=== PATIENT | male | born 1955 | race Caucasian/White ===

== ENCOUNTER 2023-10-26 11:20 | Outpatient (AMB) | payer MEDICARE, SELFPAY ==
--- NOTE | 2023-10-26 12:38 | AM.OFFWIN_ITS ---
Intake Vital Signs 10/26/23 12:39 Height 5 ft 10 in Weight 199 lb BMI 28.6 BP 112/60 Blood Pressure Location Lt brachial Position Sitting Pulse 74 Pulse Source Pulse Oximeter Temp 97.7 F Temp Source Oral Pulse Oximetry (%) 97 Intake Visit Reasons: EP, urgency with urination Intake Note: Pt is here today c/o urgency upon urination x2wks Allergies No Known Allergies [No Known Allergies*] Allergy (Unverified 10/26/23 12:51) HPI EP, urgency with urination HPI Details Patient is 67-year-old male comes the walk-in clinic complaining of urinary frequency the for the last few weeks, with incontinence of urine at times. He denies dysuria, gross hematuria, abdominal pain, pelvic or bladder pain, but does some mild left back pain. No nausea vomiting or diarrhea, weakness or dizziness, chills, fever, myalgias or malaise, chest pain or shortness of breath, headache anorexia, or other systemic symptoms of infection. He denies pyelonephritis history, or kidney stone history. He states that he has had a urinary tract the past and it presented like this. He did not have difficulty clearing that infection. Review of Systems Const All systems reviewed & are unremarkable except as noted in HPI and below Physical Exam Vital Signs: Last Vital Signs Temp 97.7 F 10/26/23 12:39 Pulse 74 10/26/23 12:39 BP 112/60 10/26/23 12:39 Pulse Ox 97 10/26/23 12:39 BMI result Body Mass Index 28.6 Const General: cooperative, healthy appearing, comfortable, no acute distress, alert, awake, Physically active and well groomed; No anxious, diaphoretic, ill appear ing, intoxicated appearing, poor hygiene or tired appearing Nutritional Appearance: average body habitus Orientation/consciousness: patient oriented x3 Limitations: no limitations Resp Effort & Inspection: normal respiratory effort, able to speak in complete sentences, no audible wheezes, no cough, no grunting, not labored, no nasal flaring, no retractions and symmetric chest movement Auscultation: clear to auscultation bilaterally, no crackles, no rales, no rhonchi, no wheezes, lung sounds not diminished and No rub present Cardio Rate: regular rate GI Palpation (GI): Soft to palpation, not firm, nontender, no guarding and not rigid General: Yes CVA tenderness (Possible left side) Back/Spine/Pelvis Back: CVA tenderness (Possible left side) Skin Other: Good color, warm and dry Neuro General: patient oriented x3 Psych Appearance: grossly normal Mental Status: mental status grossly normal Speech and movement: Normal speech and movement present Affect: normal affect Attitude: cooperative Thought process: Normal thought process present Insight: Good insight present (Psych) Judgement: Good judgement present (Psych) Results AMB Urinalysis, Automated UA Leukoctes 15 Kj/uL Last Edit by Miryam Matta CMA on 10/26/23 12:47 UA Nitrite Negative Last Edit by Miryam Matta CMA on 10/26/23 12:47 UA Urobilinogen 0.2 mg/dL Last Edit by Miryam Matta CMA on 10/26/23 12:47 UA Protein 15 mg/dL Last Edit by Miryam Matta CMA on 10/26/23 12:47 UA pH 6.0 Last Edit by Miryam Matta CMA on 10/26/23 12:47 UA Blood 0 Matthew/uL Last Edit by Miryam Matta CMA on 10/26/23 12:47 UA Specific [place] 1.030 Last Edit by Miryam Matta CMA on 10/26/23 12:47 UA Ketone Negative Last Edit by Miryam Matta CMA on 10/26/23 12:47 UA Bilirubin 0 mg/dL Last Edit by Miryam Matta CMA on 10/26/23 12:47 UA Glucose 0 mg/dL Last Edit by Miryam Matta CMA on 10/26/23 12:47 Results Reviewed Results Reviewed: Laboratory Last Values Urine pH (Auto) 6.0 10/26/23 12:43 Specific [place] (Auto) 1.030 10/26/23 12:43 Urine Protein (Auto) 15 mg/dL 10/26/23 12:43 Glucose (UA)(Auto) 0 mg/dL 10/26/23 12:43 Urine Ketones (Auto) Negative 10/26/23 12:43 Urine Blood (Auto) 0 Matthew/uL 10/26/23 12:43 Urine Nitrite (Auto) Negative 10/26/23 12:43 Urine Bilirubin (Auto) 0 mg/dL 10/26/23 12:43 Urine Urobilinogen (Auto) 0.2 mg/dL 10/26/23 12:43 Leukocyte Esterase (Auto) 15 Kj/uL 10/26/23 12:43 Assessment & Plan Assessment & Plan (1) UTI (urinary tract infection): Code(s): N39.0 - Urinary tract infection, site not specified Qualifiers: Urinary tract infection type: acute cystitis Hematuria presence: without hematuria Qualified Code(s): N30.00 - Acute cystitis without hematuria Plan: Patient is a 67-year-old male with apparent UTI, acute uncomplicated cystitis although he does have some intermittent incontinence. His vital signs are stable, and he has no worrisome symptoms other than mild left back pain. He is a male, but no other high risk factors. I will start him on Macrobid, as he has limited with antibiotics due to his other meds. He did not have difficulty clearing his last UTI in the past, but I will send his urine out for microscopy and susceptibility testing. He knows to follow up if symptoms persist or worsen, or go to the emergency department with worrisome symptoms. Orders: Orders AMB Urinalysis Automated 10/26/23 Z13.9 - Encounter for screening, unspecified UA CC w/rflx Micro + Cult 10/26/23 R30.0 - Dysuria Medications: New nitrofurantoin monohyd/m-cryst 100 mg (Macrobid) must administer with a meal/food 100 mg PO Q12H 7 days 14 caps 0RF N39.0 - Urinary tract infection, site not specified Coding Level of Care Code Est Pt Level 4 (53798) Diagnoses Acute cystitis without hematuria N30.00 Urinary tract infection type: acute cystitis Hematuria presence: without hematuria
[2023-10-26 12:39] VITALS: BP 112/60; PULSE 74; TEMP 36.5; O2SAT 97; BMI 28.6
== END 2023-10-26 13:26 | disposition home or self-care (01) ==
PROVIDERS: PCP Internal Medicine; Visit Provider Physician Assistant Medical
DX: R35.0 Frequency of micturition (principal)
CPT/HCPCS: 81003; 99214

== ENCOUNTER 2023-10-26 15:27 | Outpatient (REF) | payer MEDICARE, SELFPAY ==
[2023-10-26 15:34] LABS: Appearance Urine Cloudy; Color Urine DK YELLOW; Glucose Urine UA Negative (Negative); Leukocyte Esterase Urine Trace (Negative); Nitrite Urine Negative (Negative); Specific Gravity - Urine 1.025 (1.005-1.025); UMIC TRIGGER UACC YES; Urine Blood Negative (Negative); Urine Ketones Negative (Negative); Urine Protein Trace mg/dL (Neg-Trace)
[2023-10-26 15:39] LABS: Bacteria Urine None Seen (None Seen); Hyaline Casts Urine 0-2 /LPF (0-2); RBC Urine 0-2 /HPF (0-2); Squamous Epithelial Cell Urine 0-2 /HPF (0-2); UACC Culture Trigger YES
== END 2023-10-26 15:28 | disposition home or self-care (01) ==
LOC: HO.HMGCLNP 15:27
PROVIDERS: Visit Provider Physician Assistant Medical
DX: R30.0 Dysuria (principal)
CPT/HCPCS: 81001; 87086; 87088; 87186

== ENCOUNTER 2025-11-23 09:18 | Outpatient (AMB) | payer MEDICARE, SELFPAY ==
--- OUTSIDE RECORDS SUMMARY | 2024-09-29 08:45 | XMS_ITS ---
Author Organization [facility] Address [address] [facility] [place] [address] Care Team Providers Care Dairy Husbandman Name Role Phone Mariah Galaviz Primary Care Provider Marly Neal [phone] REASON FOR VISIT sooner appt Encounters Encounter Location Date Provider Diagnosis [address] [address] 09/29/2024 Marly Grier Plan Of Treatment Next Appt Details Provider Name:Marly Grier , 02/11/2026 01:15:00 PM, [address] [place], [address], Progress Notes * Kurt FRAUSTO ODOB: [birth year] (70 yo M)Acc No.[id number]:09/29/2024 Progress Note Patient: Demetrio BALLerin Tejada Provider: Tea Grier DPM :1955 A ge:68 Y S ex:Male Date:09/29/2024 Address:[address], [place] Pcp:Mariah Galaviz Subjective: * Chief Complaints: * 1 . Sooner appt. * Medical History: Objective: * Vitals: Assessment: Plan: * Treatment: * Images: * The named appointment provid er may or may not be the originator of this progress note, and it is not deemed complete until electronically signed by the appointment provider. Sign off status: Pending * Provider: Tea Grier DPM Date: 11/29/2023 Generated for Amie mendoza/Lori/Flex on: 11:47 AM EST
--- OUTSIDE RECORDS SUMMARY | 2024-10-15 06:30 | XMS_ITS ---
Author Organization [facility] Address [address] [place] [address] Care Team Providers Care Programming Manager Name Role Phone Mariah Galaviz Primary Care Provider Marly Neal [phone] REASON FOR VISIT Seen Sooner Encounters Encounter Location Date Provider Diagnosis [facility] [address] [place] [address] 10/15/2024 Marly Grier Plan Of Treatment Next Appt Details Provider Name:Marly Jenifer Grier , 02/11/2026 01:15:00 PM, [address] [place], [address], Progress Notes * Kurt FRAUSTO ODOB: [birth year] (70 yo M)Acc No.[id number]:10/15/2024 Progress Note Patient: Demetrio BALLerin Tejada Provider: Tea Grier DPM :1955 A ge:68 Y S ex:Male Date:10/15/2024 Address: [address] Pcp:Mariah Galaviz Subjective: * Chief Complaints: * 1 . Seen Sooner. * Medical History: Objective: * Vitals: Assessment: Plan: * Treatment: * Images: * The named appointment provid er may or may not be the originator of this progress note, and it is not deemed complete until electronically signed by the appointment provider. Sign off status: Pending * Provider: Tea Grier DPM Date: 12/15/2023 Generated for Amie mendoza/Lori/Flex on: 11:47 AM EST
--- OUTSIDE RECORDS SUMMARY | 2025-06-14 06:00 | XMS_ITS ---
Author Organization [facility] Address [address] [place] [address] Care Team Providers Care Team Otr Truck Driver Name Role Phone Mariah Galaviz Primary Care Provider Unavailabl e Black, Marly Unavailable [phone] Medications Medication SIG (Take, Route, Frequency, Duration) Notes Start Date End Date Status Metoprolol Succinate ER 50 MG 1 tablet Orally twice a day; Duration: 30 day(s) Not-Himanshu ing Neurontin 300 MG 1 capsule Orally Thr ee times a day 06/10/2013 Not-Taking Flecainide Acetate 100 MG 1 tablet Orally every 12 hrs; Duration: 30 day(s) Not-Himanshu ing Zolpidem Tartrate 10 MG 1 tablet at bedt brooke as needed Orally Once a day Not-Himanshu ing Lisinopril 20 MG 1 tablet Orally Once a day; Duration: 30 day(s) Not-Himanshu ing Zoloft 1 tablet Orally Once a day; Duration: 30 day(s) Not-Himanshu ing Pravachol 1 tablet Orally Once a day; Duration: 30 days Not-Takin g Extra-Depth Diabetic Shoes with 3 Pair Custom heat-molded multi-density innersoles . for 1 year . 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 07/08/2014 Not-Taking Gabapentin 300 MG TAKE ONE CAPSULE BY MOUTH 3 TIMES A DAY Orally Three times a day; Duration: 90 days Not-Takin g Metoprolol Tartrate 100 MG 1 tablet with food Orally Twice a day Not-Taking Extra Depth Orthopedic Shoes (1 Pair) with Customized Heat Molded Multidensity Innersoles (3 Pair) as directed Dx: NIDDM/Polyneuropathy (E11.42), Hammertoe Foot Deformity (M20.41,M20.42), Preulcerative Skin Lesion(s) (L85.1 02/18/2025 Active Ciclopirox 8 % 1 application Backpackers Manager ally Once a day; Duration: 30 08/06/2023 Active Ciclopirox 8 % 1 application Backpackers Manager ally Once a day; Duration: 30 days 08/05/2023 Active Omeprazole 20 MG 1 capsule Orally Onc e a day; Duration: 30 day(s) Active Warfarin Sodium 5 MG 1 tablet Orally Onc e a day Active Atorvastatin Calcium 10 MG 1 tablet Orally Once a day Active Magnesium Oxide 250 MG 1 tablet as neede d Orally Once a day Active metFORMIN HCl ER 500 MG 1 tablet with ev ening meal Orally Once a day Active Amitriptyline HCl 50 MG 1 tablet at bedt brooke Orally Once a day Active Fenofibrate 145 MG 1 tablet Orally Once a day Active ARIPiprazole 5 MG 1 tablet Orally Once a day Active Encounters Encounter Location Date Provider Diagnosis [facility] [address] [place] [address] 06/14/2025 Marly Grier Plan Of Treatment Next Appt Details Provider Name:Marly A Marvel , 02/11/2026 01:15:00 PM, [address] [place] [address], [place], [address], Progress Notes * Kurt FRAUSTO ODOB: [birth year] (70 yo M)Acc No.[id number]:06/14/2025 Progress Note Patient: Kurt BALL Provider: Tea Grier DPM :1955 A ge:69 Y S ex:Male Date:06/14/2025 Address:[address] [place], [place] [id number] Pcp:Mariah Galaviz Subjective: * Chief Complaints: * * Medical History: D epression, High blood pressure, Anxiety, Arthritis, Back,Hip,and Knee pain, Heart disease, Measles, Mumps, Chicken pox, Numbness, Chronic sinusitis, Vascular phlebitis (clots). * Medications: T aking ARIPiprazole 5 MG Tablet 1 tablet Orally Once a day , Taking Fenofibrate 145 MG Tablet 1 tablet Orally Once a day , Taking Amitriptyline HCl 50 MG Tablet 1 tablet at bedtime Orally Once a day , Taking metFORMIN HCl ER 500 MG Tablet Extended Release 24 Hour 1 tablet with evening meal Orally Once a day , Taking Magnesium Oxide 250 MG Tablet 1 tablet as needed Orally Once a day , Taking Atorvastatin Calcium 10 MG Tablet 1 tablet Orally Once a day , Taking Warfarin Sodium 5 MG Tablet 1 tablet Orally Once a day , Taking Omeprazole 20 MG Capsule Delayed Release 1 capsule Orally Once a day , Taking Ciclopirox 8 % Solution 1 application Externally Once a day , Taking Ciclopirox 8 % Solution 1 application Externally Once a day , Taking Extra Depth Orthopedic Shoes (1 Pair) with Customized Heat Molded Multidensity Innersoles (3 Pair) as directed Dx: NIDDM/Polyneuropathy (E11.42), Hammertoe Foot Deformity (M20.41,M20.42), Preulcerative Skin Lesion(s) (L85.1 , Not-Taking/PRN Metoprolol Tartrate 100 MG Tablet 1 tablet with food Orally Twice a day , Not-Taking/PRN Gabapentin 300 MG Capsule TAKE ONE CAPSULE BY MOUTH 3 TIMES A DAY Orally Three times a day , Not-Taking/PRN Extra-Depth Diabetic Shoes with 3 Pair Custom heat-molded multi-density innersoles . . for 1 year . 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 , Not-Taking/PRN Pravachol Tablet 1 tablet Orally Once a day , Not-Taking/PRN Zoloft Tablet 1 tablet Orally Once a day , Not-Taking/PRN Metoprolol Succinate ER 50 MG Tablet Extended Release 24 Hour 1 tablet Orally twice a day , Not-Taking/PRN Lisinopril 20 MG Tablet 1 tablet Orally Once a day , Not-Taking/PRN Zolpidem Tartrate 10 MG Tablet 1 tablet at bedtime as needed Orally Once a day , Not-Taking/PRN Flecainide Acetate 100 MG Tablet 1 tablet Orally every 12 hrs , Not-Taking/PRN Neurontin 300 MG Capsule 1 capsule Orally Three times a day Objective: * Vitals: Assessment: Plan: * Treatment: * Images: * The named appointment provid er may or may not be the originator of this progress note, and it is not deemed complete until electronically signed by the appointment provider. Sign off status: Pending * Provider: Tea Grier DPM Date: 0 06/14/2025 Generated for Amie mendoza/Alex on: 1 11:47 AM EST
--- NOTE | 2025-11-23 09:28 | MHC.OFFVIS ---
Intake Visit Reasons: dementia Allergies No Known Allergies (No Known Allergies*) Allergy (Unverified 11/23/25 09:34) Medication List - Last Reconciled 11/23/25 by Marilou Salazar CNP amitriptyline 50 mg PO BEDTIME aripiprazole 2 mg PO DAILY atorvastatin 10 mg PO DAILY blood sugar diagnostic (FreeStyle Lite Strips) As directed cholecalciferol (vitamin D3) 50 mcg PO DAILY ciclopirox 8% 1 appl topical DAILY clonazepam 0.5 mg PO DAILY fenofibrate nanocrystallized 145 mg PO DAILY flecainide 100 mg PO BID fluticasone propionate 50 mcg/actuation sprays intranasal lancets (FreeStyle Lancets) As directed lisinopril 10 mg PO BID magnesium oxide 250 mg PO DAILY metformin ER 500 mg PO DAILY metoprolol tartrate 25 mg PO BID nitrofurantoin monohyd/m-cryst 100 mg (Macrobid) 100 mg PO Q12H 7 days omeprazole 20 mg PO DAILY sertraline 200 mg PO DAILY warfarin 5 mg PO DAILY HPI Comments Details: 70-year-old man with DM, HTN, atrial fibb, MASSIMO on CPAP, depression, and dementia. He returns after about 21 months. He does not have a complete medication list with him. He stopped taking donepezil probably sometime over a year ago as he ran out of medication. He feels his memory has been okay, but he wanted to restart medication. He lived with his and he said that she did not have any concerns regarding his memory. He enjoyed playing games on the computer and biking. He also recently joined a gym. Sleep was okay, using CPAP. Mood was okay. [facility] Medical History (Updated 11/23/25 @ 09:34 by Marilou Salazar CNP) Diabetes MASSIMO (obstructive sleep apnea) Barretts esophagus Hypertension Afib DVT (deep venous thrombosis) Depression Surgical History (Updated 11/23/25 @ 09:34 by Marilou Salazar CNP) Hx of decompressive lumbar laminectomy Review of Systems Const Denies chills, Denies daytime sleepiness, Denies difficulty sleeping, Denies fatigue, Denies fever(s), Denies frequent falls, Denies headache(s), Denies increased appetite, Denies poor appetite, Denies snoring, Denies weakness, Denies weight gain and Denies weight loss Eyes Denies loss of vision ENT Denies vertigo, Denies dizziness and Denies headache(s) Card Denies chest pain at rest, Denies chest pain with activity, Denies syncope, Denies leg edema and Denies palpitations Resp Denies snoring GI Denies constipation, Denies heartburn, Denies diarrhea and Denies nausea Denies urinary frequency, Denies urinary incontinence and Denies urinary urgency Musc Denies abnormal gait, Denies numbness and Denies tingling Skin/Breast Denies dry skin and Denies rash Neuro Denies abnormal gait, Denies vertigo, Denies dizziness, Denies syncope, Denies frequent falls, Denies headache(s), Denies lack of coordination, Denies loss of vision, Reports memory loss, Denies numbness, Denies restless legs, Denies seizure-like activity, Denies tingling, Denies paresthesias, Denies tremor(s) and Denies weakness Psych Denies anxiety, Denies depression, Denies auditory hallucinations, Reports memory loss, Denies visual hallucinations and Denies suicidal ideation Endo Denies fatigue and Denies palpitations Physical Exam Const Other: General Appearance:? normal, in no acute distress. Skin:? no rashes, no significant birthmarks. Heart:? S1, S2 normal, no murmurs. Lungs:? clear anteriorly and posteriorly. Extremities:? no edema. Psych:? alert, cooperative with exam. Neuro Other: Mental Status:?Normal attention and affect.?He was able to tell me today's date, 3/3 recall. Cranial Nerves:?Pupils are equal, round and reactive to light. External occular muscles are intact. Visual hayward are full. Face is symmetrical. Facial sensations are normal. Tongue is midline. Palate elevates symmetrically. Shoulder shrugging is normal. Hearing to bedside conversation is decreased. Sensory Exam:?....? Coordination:?No ataxia,?no titubation.? Gait Exam: Within normal limits. Cerebellar Signs:?Diaipx-du-kuok is okay. Extrapyramidal System:?No tremor, rigidity with normal facial expressions.? Pronator Drift:?Not present.? Involuntary Movements:?No tremors seen.? Speech:?Normal.? Results Reviewed Results Reviewed: CT brain WO at [facility] in 2019: mild diff atrophy MRI brain WO at [facility] in 2019: mild diff atrophy MRA brain at [facility] in 2019: [place]. Assessment & Plan Assessment & Plan (1) Alzheimers disease: Code(s): G30.9 - Alzheimer's disease, unspecified; F02.80 - Dementia in other diseases classified elsewhere, unspecified severity, without behavioral disturbance, psychotic disturbance, mood disturbance, and anxiety Category: Medical Plan: Start donepezil 5mg 1 tablet at bedtime, use/side effects reviewed. Stay physically and socially active. He was asked to bring complete list of medications to next appointment. Follow up in 3 months or sooner as needed. Medications: New donepezil 5 mg PO BEDTIME 90 tabs 0RF 90 days Coding Level of Care Code Est Pt Level 4 (78663) Diagnoses Alzheimers disease G30.9; F02.80
--- OUTSIDE RECORDS SUMMARY | 2025-11-23 11:46 | XMS_ITS | Encounter Summary ---
Author Organization [facility] Address [address] [place] [address] Care Team Providers Care Marketing Liaison Name Role Phone Mariah Galaviz MD Primary Care Provider [phone] Reason for Visit * Reason Onset Date Comments Cough 11/16/2024 Cold Exposure 11/16/2024 Encounter Details Date Type Department Care Team (Late st Contact Info) Description 11/16/2024 Nurse Triage Adult Medicine [address] [phone] Mariah Galaviz MD [address] [place] [address] Social History Tobacco Use Types Packs/Day Years Used Date Smoking Tobacco: Former Cigarettes 0 Q uit: 01/23/2022 Passive Smoke Exposure: Never Smokeless Tobacco: Never Alcohol Use Standard Drinks/Week Comments Never 0 (1 standard drink = 0.6 oz pur e alcohol) Sex and Gender Information Value Date Recorded Sex Assigned at Male 08/16/2025 8:13 AM EDT Legal Sex Male 10:41 AM EST Gender Identity Male 08/16/2025 8:13 AM EDT Sexual Orientation Not on file documented as of this encounter Progress Notes * Fatmata Swain RN - 11/16/2024 4:51 PM EST Reason for Disposition ??? Cough Answer Assessment - Initial Assessment Questions 1. ONSET: When did the cough begin? Started approx 2 weeks ago 2. SEVERITY: How bad is the cough today? At times intense nasty souding 3. SPUTUM: Describe the color of your sputum (e.g., none, dry cough; clear, white, yellow, green) Very productive with thick sputum yellowish 4. HEMOPTYSIS: Are you coughing up any blood? If Yes, ask: How much? (e.g., flecks, streaks, tablespoons, etc.) no 5. DIFFICULTY BREATHING: Are you having difficulty breathing? If Yes, ask: How bad is it? (e.g., mild, moderate, severe) - MILD: No SOB at rest, mild SOB with walking, speaks normally in sentences, can lie down, no retractions, pulse < 100. - MODERATE: SOB at rest, SOB with minimal exertion and prefers to sit, cannot lie down flat, speaksin phrases, mild retractions, audible wheezing, pulse 100-120. - SEVERE: Very SOB at rest, speaks in single words, struggling to breathe, sitting hunched forward,retractions, pulse > 120. mild 6. FEVER: Do you have a fever? If Yes, ask: What is your temperature, how was it measured, and when did it start? No fever or chills 7. CARDIAC HISTORY: Do you have any history of heart disease? (e.g., heart attack, congestive heart failure) A-fib 8. LUNG HISTORY: Do you have any history of lung disease? (e.g., pulmonary embolus, asthma, emphysema) Nodule in one lung 9. PE RISK FACTORS: Do you have a history of blood clots? (or: recent major surgery, recent prolonged travel, bedridden) Dvt left knee 10. OTHER SYMPTOMS: Do you have any other symptoms? (e.g., runny nose, wheezing, chest pain) No chest pain, no wheezing 11. : Is there any chance you are ? When was your last menstrual period? N/A 12. TRAVEL: Have you traveled out of the country in the last month? (e.g., travel history, exposures) Did not test for covid Protocols used: Cough - Acute [id number] * Jung Mckeon - 11/16/2024 2:31 PM EST Patient call requires triage: Symptoms patient is presenting: pt went to [facility] 11/08/24, pt got an x-ray and it didn't show that pt had an infection. Pt is still coughing and yellow phlegm. Pt took OTC mucinex. How long has patient had these symptoms?: 11/08/24 For ALL patients calling to schedule any appointment (routine, sick visit, follow up, consult, etc.) in the outpatient setting please ask the following questions: Do you have fever of higher than 101, sore throat with difficulty swallowing or severe shortness ofbreath? Yes, sore throat and SOB If YES to any of these above symptoms, send a message to triage and do not book. Red dot. If no, an audio or video visit should be booked. Have you had close contact with someone with Coronavirus in the last 14 days? no Have you traveled abroad? no Have you traveled recently to another state outside of [place], [place], [place], [place], [place], [place], [place]? no o If yes, did you quarantine for 14 days or have a negative covid test? no If yes to any of the above, patient is not to be scheduled in office until after 14 day quarantine or negative covid test. If pain or injury related was it due to an accident at work or from a motor vehicle accident? If yes, date of accident/Injury: No If yes, gather 3rd libertarian insurance information Third Constitution Party Information: not applicable PCP: aMriah Galaviz MD Payor: [facility] / Plan: [facility] PPO / Product Type: *No Product type* / documented in this encounter Plan of Treatment Not on file documented as of this encounter Visit Diagnoses Not on filedocumented in this encounter Additional Health Concerns Infection Onset Date Last Indicated Resolved Time Respiratory Rule-Out 04/21/2025 04/21/2025 025 11:18 PM EDT COVID-19 Rule-Out 04/21/2025 04/21/2025 04/21/2025 11:18 PM EDT C. difficile Rule-Out 07/01/2025 07/01/20252024 3:40 PM EDT documented as of this encounter Care Teams Marketing Liaison Relationship Specialty Start Date End Date Mariah Galaviz MD [address] [place] [address] PCP - General Internal Medicine 09/18/24 documented as of this encounter
--- OUTSIDE RECORDS SUMMARY | 2025-11-23 11:47 | XMS_ITS | Patient Health Record ---
[facility] Address [address] [place] [address] Care Team Providers Care Brush Or Broom Cutter Name Role Phone Mariah Galaviz Primary Care Provider Unavailvu e Black, Marly Unavailable [phone] Allergies No Known Allergies Results Component Value Reference Range Notes HEMOGLOBIN A1C (GLYCOHEMOGLO BIN) Reviewed date:03/04/2025 02:08:55 PM Interpretation: Performing Lab: Notes/Report: HEMOGLOBIN A1C % (HH) 7.8 Reason For Referral No Information Medications Medication SIG (Take, Route, Frequency, Duration) Notes Start Date End Date Status Atorvastatin Calcium 10 MG 1 tablet Orally Once a day Active Metoprolol Succinate ER 50 MG 1 tablet Orally twice a day; Duration: 30 day(s) Not-Himanshu ing Magnesium Oxide 250 MG 1 tablet as neede d Orally Once a day Active Zoloft 1 tablet Orally Once a day; Duration: 30 day(s) Not-Himanshu ing metFORMIN HCl ER 500 MG 1 tablet with ev ening meal Orally Once a day Active Pravachol 1 tablet Orally Once a day; Duration: 30 days Not-Takin g Amitriptyline HCl 50 MG 1 tablet at bedt brooke Orally Once a day Active Extra-Depth Diabetic Shoes with 3 Pair Custom heat-molded multi-density innersoles . for 1 year . 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 07/08/2014 Not-Taking Fenofibrate 145 MG 1 tablet Orally Once a day Active Gabapentin 300 MG TAKE ONE CAPSULE BY MOUTH 3 TIMES A DAY Orally Three times a day; Duration: 90 days Not-Takin g ARIPiprazole 5 MG 1 tablet Orally Once a day Active Metoprolol Tartrate 100 MG 1 tablet with food Orally Twice a day Not-Taking Extra Depth Orthopedic Shoes (1 Pair) with Customized Heat Molded Multidensity Innersoles (3 Pair) as directed Dx: NIDDM/Polyneuropathy (E11.42), Hammertoe Foot Deformity (M20.41,M20.42), Preulcerative Skin Lesion(s) (L85.1 02/18/2025 Active Neurontin 300 MG 1 capsule Orally Thr ee times a day 06/10/2013 Not-Taking Ciclopirox 8 % 1 application Mail Truck Driver ally Once a day; Duration: 30 08/06/2023 Active Ciclopirox 8 % 1 application Mail Truck Driver ally Once a day; Duration: 30 days 08/05/2023 Active Flecainide Acetate 100 MG 1 tablet Orally every 12 hrs; Duration: 30 day(s) Not-Himanshu ing Omeprazole 20 MG 1 capsule Orally Onc e a day; Duration: 30 day(s) Active Zolpidem Tartrate 10 MG 1 tablet at bedt brooke as needed Orally Once a day Not-Himanshu ing Warfarin Sodium 5 MG 1 tablet Orally Onc e a day Active Lisinopril 20 MG 1 tablet Orally Once a day; Duration: 30 day(s) Not-Himanshu ing Immunizations Vaccine Route Administration Date Status Comme nts Influenza Unknown 08/05/2023 Administered Social History Tobacco Use: Social History Observation Description Date Details (start date - stop date) Never Smoker NA - NA Alcohol Screen Question Answer Notes Did you have a drink contain ing alcohol in the past year? Yes How often did you have a dri nk containing alcohol in the past year? 4 or more times a week (4 points) Points 4 Interpretation Positive Tobacco use other than smoking: Question Answer Notes Are you an other tobacco user? No Tobacco Control (Standard) Question Answer Notes Tobacco use: Nonsmoker Problems Problem Type SNOMED Code ICD Code Onset Dates Problem Status W/U Status Risk Notes Problem Acquired hammer toe of right foot (649548002726725 5) Other hammer toe(s) (acquired), right foot (M20.41) Active confirmed Problem Acquired hammer toe of left foot (674052596673187 3) Other hammer toe(s) (acquired), left foot (M20.42) Active confirmed Problem Polyneuropathy due to type 2 diabetes mellitus (170492688) Type 2 diabetes mellitus with diabetic polyneuropathy (E11.42) Active confirmed Problem Acquired hallux valgus (08420427) 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) Active confirmed Problem Ulcer of toe of right foot (disorder) (880810726748807 01) Skin ulcer of toe of right foot, limited to breakdown of skin (L97.511) Active confirmed Improvement Problem Skin ulcer of to e of right foot with fat layer exposed (L97.512) Active confirmed Problem Neuropathic ulcer of right foot (disorder) (337074800324780 02) Neuropathic ulcer of right foot, limited to breakdown of skin (L97.511) Active confirmed Response to treatment Vital Signs Blood pressure diastolic 80 mm Hg 03/04/2025 Height 0jn33wk in 03/04/2025 Blood pressure systolic 120 mm Hg 03/04/2025 Weight 193 lbs 03/04/2025 BMI 27.69 kg/m2 03/04/2025 Procedures Procedure Date Ordered Date Performed Result Body Sit e 71243-MMJSWNP SKIN/TISSUE 02/18/2025 N/A 24932-GIQBIVL NAIL, 1-5 03/04/2025 N/A 47128- Debride <25 sq cm 03/04/2025 N/A 45757-RWMY SKIN LESIONS, 2 TO 4 03/04/2025 N/A 96315-HQVC NAIL(S) 03/04/2025 N/A Encounters Encounter [facility] Date [facility] [address] [facility]18[facility]25 Marly Black Other hammer toe(s) (acquired), right foot M20.41 ; Other hammer toe(s) (acquired), left foot M20.42 ; Acquired hallux interphalangeus of right foot M20.11 ; Type 2 diabetes mellitus with diabetic polyneuropathy E11.42 and Skin ulcer of toe of right foot with fat layer exposed L97.[address] [facility] [address] 03/04/2025 Marly Black Type 2 diabetes mellitus with diabetic polyneuropathy E11.42 ; Onychomycosis B35.1 and Skin ulcer of toe of right foot, limited to breakdown of skin L97.511 [facility] [address] [address] 02/16/2025 Marly Grier [facility] [address] [address] 03/04/2025 Marly Grier [facility] [address] 06/14/2025 Marly Grier Assessments Encounter Date Diagnosis (ICD Code) Assessment Notes Treatment Notes Treatment Clinical Notes Section Notes 02/18/2025 Other hammer toe(s) (acquired), right foot (ICD-10 - M20.41) Patient Educated with: DIABETIC FOOT CARE INSTRUCTIONS. pdf (DIABETIC FOOT CARE INSTRUCTIONS. pdf) 02/18/2025 Other hammer toe(s) (acquired), left foot (ICD-10 - M20.42) 03/04/2025 Type 2 diabetes mellitus with diabetic polyneuropathy (ICD-10 - E11.42) 03/04/2025 Onychomycosis (ICD-10 - B35.1) 03/04/2025 Skin ulcer of toe of right foot, limited to breakdown of skin (ICD-10 - L97.511) Improvement 02/18/2025 Acquired hallux interphalangeus of right foot (ICD-10 - M20.11) 02/18/2025 Type 2 diabetes mellitus with diabetic polyneuropathy (ICD-10 - E11.42) 02/18/2025 Skin ulcer of toe of right foot with fat layer exposed (ICD-10 - L97.512) 03/04/2025 Other Plan Of Treatment Pending Test Test Name Order Date X ray : Foot, left 3V 05/11/2013 X ray : Foot, right 3V 07/08/2014 X ray : Foot, right 3V 05/11/2013 65960-QMLKFET NAIL, 6 OR MORE 06/10/2013 32071-PFYFBAK NAIL, 6 OR MORE 05/11/2013 69563-HHIFGZU NAIL, OR MORE 07/13/2013 79664-ELUUFOE NAIL, 1-5 08/05/2023 02458-EDNZWQZ NAIL, 1-5 10/21/2023 25071-HCOXPJV NAIL, 1-5 04/09/2024 57242-GQKROGT NAIL, 1-5 09/24/2024 70407-MXQJOSZ NAIL, 1-5 03/04/2025 52148- Debride <25 sq cm 03/04/2025 71288- Debride <25 sq cm 09/24/2024 68072- Debride <25 sq cm 04/09/2024 16336- Debride <25 sq cm 10/21/2023 83211- Debride <25 sq cm 08/05/2023 87585- Debride <25 sq cm 07/13/2013 35003- Debride <25 sq cm 10/12/2013 87284- Debride <25 sq cm 05/11/2013 78675- Debride <25 sq cm 06/10/2013 67366-XMKVASJ SKIN/TISSUE 07/08/2014 62574-QFLSDYS SKIN/TISSUE 02/18/2025 56653-WDRR SKIN LESIONS, 2 TO 4 03/04/20 25 83116-UALK SKIN LESIONS, 2 TO 4 07/08/20 14 54654-PPTA SKIN LESIONS, 2 TO 4 08/05/20 23 19588-YUSH SKIN LESIONS, 2 TO 4 10/21/20 23 58524-FMYS SKIN LESIONS, 2 TO 4 04/09/20 24 47855-IHEO SKIN LESIONS, 2 TO 4 09/24/20 24 20346-IRPH NAIL(S) 03/04/2025 08309-UOIG NAIL(S) 09/24/2024 Next Appt Details Provider Name:Marly Grier , 02/11/2026 01:15:00 PM, [address] [place], [address], Insurance Providers Payer Name Payer Address Payer Phone Subscriber Number Group Number Insured Name Patient Relationship to Insured Coverage Start Date Coverage End Date [facility] 65 Medicare Preferred [address] [place] [address] [id number] Kurt Frausto Self - patient is the insured Medical (General) History Medical History History ICD Code depression high blood pressure Anxiety Arthritis Back,Hip,and Knee pain Heart disease Measles Mumps Chicken pox Numbness chronic sinusitis Vascular phlebitis (clots) Surgical History Surgery Date(Month/Year) back surgery 1975 lumbar fusion 2020
--- OUTSIDE RECORDS SUMMARY | 2025-11-23 11:47 | XMS_ITS | Data Portability ---
Author Organization [place] [facility] Address [address] [address] Care Team Providers Care Casing In Line Feeder Name Role Phone LETITIA CARISSA Primary Care Provider [phone] Assessment Encounter Date Assessment Date Assessment LastModified by Organization Details LastModified Time 07/07/2024 07/07/2024 Resolution: In-office cleaning. Patient to peanut picker device(s) at their convenience. [email or web address] Not available 07/07/2024 15:02:49 10/08/2024 10/08/2024 Patient has a discount through his insurance at [facility] and would like to investigate this option before proceeding with a fitting at this office. [email or web address] Not available 10/08/2024 14:04:42 Plan of Treatment Reminders Order Date Submit Date Provider Last Modified By Organization Details Last Modified Time Details Appointments None record ed. Lab None record ed. Referral None record ed. Procedures None record ed. Surgeries None record ed. Imaging None record ed. Medication Orders None record ed. Patient TargetsNo targets recorded. Patient InstructionsNo instructions recorded. Reason for Referral None Reported. Results Created Date Observation Date Name Description Value Unit Range Abnormal Flag Note LastModifiedBy Organization Detail LastModifiedTime 07/14/2010/24/2023 imagi ng/di agnos tic resul t No observ ation record ed. [email or web address] Not Available 19:33:45 07/14/20 24 11/27/2023 audio gram No observ ation record ed. [email or web address] Not Available 19:33:52 Result Notes None recorded. Problems Name Problem SNOMED Code Status Onset Date Resolution Date Notes Provider Name and Address Organization Details Recorded Time Disorder of nasal sinus 2776343 Active 2019 Unspecifie d disorder of nose and nasal sinuses; Note: Date Diagnosed: 06/08/2020 2:10 PM (J34.9) Not Available [facility] 4 02:13:22 Disorder of the nose 51035967 Active 2019 Unspecifie d disorder of nose and nasal sinuses; Note: Date Diagnosed: 06/08/2020 2:10 PM (J34.9) Not Available [facility] 4 02:13:22 Sensorine ural hearing loss of bilateral ears 841523993 Active 2022 Sensorineu ral hearing loss, bilateral; Note: Date Diagnosed: 10/29/2023 11:32 AM (H90.3) Not Available [facility] 4 02:13:36 Problem Notes None recorded. Medical Equipment None Reported. Medications Name Sig Start Date Stop Date Status Note LastModified by Organization Details LastModified Time clonidine HCl 0.1 mg tablet TAKE 1 TABLET BY MOUTH NIGHTLY active Not Available Not Available No t Available doxycyclin e hyclate 100 mg capsule TAKE 1 CAPSULE BY MOUTH TWICE A DAY WITH FOOD & BIG GLASS OF WATER FOR 5 DAYS active Not Available Not Available No t Available atorvastat in 10 mg tablet TAKE 1 TABLET BY MOUTH EVERYDAY AT BEDTIME active Not Available Not Available No t Available metoprolol tartrate 100 mg tablet 2018 active Medicatio n ID: [id number] Du ration Value: 90 Brand Name: metoprolo l tartrate Send Method: E-Prescri bed Subs Allowed: subs OK Specia l Instructi on: TAKE 1 TABLET BY MOUTH TWICE A DAY Medic ationGene ricName: metoprolo l tartrate Not Available Not Available Not Available donepezil 10 mg tablet TAKE 1 TABLET BY MOUTH EVERY DAY AT BEDTIME FOR 90 DAYS active Not Available Not Available No t Available FreeStyle Lancets 28 gauge TO TEST SUGARS ONCE A DAY PRIOR TO BREAKFAST active Not Available Not Available No t Available clonazepam 0.5 mg tablet TAKE 1 TABLET EVERY DAY BY ORAL ROUTE NEEDED. active Not Available Not Available No t Available sertraline 100 mg tablet TAKE 1 TABLET BY MOUTH EVERY DAY active Not Available Not Available No t Available amitriptyl ine 50 mg tablet TAKE 1 TABLET BY MOUTH EVERY DAY active Not Available Not Available No t Available oxycodone- acetaminop hen 5 mg-325 mg tablet TAKE 1 TABLET BY MOUTH FOUR TIMES A DAY FOR 7 DAYS active Not Available Not Available No t Available magnesium oxide 400 mg (241.3 mg magnesium) tablet TAKE 1 TABLET BY MOUTH EVERY DAY active Not Available Not Available No t Available tamsulosin 0.4 mg capsule 2018 active Medicatio n ID: [id number] Du ration Value: 90 Brand Name: tamsulosi n Send Method: E-Prescri bed Subs Allowed: subs OK Specia l Instructi on: TAKE 1 CAPSULE BY MOUTH EVERYDAY AT BEDTIME M edication GenericNa me: tamsulosi n Not Available Not Available Not Available trazodone 100 mg tablet TAKE 1 TABLET BY MOUTH NEEDED AT BEDTIME active Not Available Not Available No t Available lisinopril 10 mg tablet TAKE 1 TABLET BY MOUTH TWICE A DAY active Not Available Not Available No t Available warfarin 5 mg tablet TAKE 1/2 TAB -1 TAB DAILY DIRECTED BY [facility] active Not Available Not Available No t Available flecainide 100 mg tablet active Medicatio n ID: [id number] Br and Name: flecainid e Send Method: E-Prescri bed Subs Allowed: subs OK Medica tionGener icName: flecainid e Not Available Not Available Not Available omeprazole 20 mg capsule,de layed release TAKE 1 CAPSULE BY MOUTH EVERY DAY active Not Available Not Available No t Available mupirocin 2 % topical ointment Apply 1 a small amount to affected area twice a day 2019 active Medicatio n ID: [id number] Pr escribed By Name: Preet Stockton MD Brand Name: mupirocin Send Method: E-Prescri bed Subs Allowed: subs OK Medica tionGener icName: mupirocin Not Available Not Available Not Available albuterol sulfate HFA 90 mcg/actuat ion aerosol inhaler INHALE 2 PUFFS INTO LUNGS EVERY 6 HOURS NEEDED FOR COUGH, WHEEZING, SHORTNESS OF BREATH active Not Available Not Available No t Available fluticason e propionate 50 mcg/actuat ion nasal spray,susp ension SPRAY 2 SPRAYS BY NASAL ROUTE DAILY active Not Available Not Available No t Available metformin ER 500 mg tablet,ext ended release 24 hr TAKE 1 TABLET BY MOUTH EVERYDAY WITH FOOD active Not Available Not Available No t Available sertraline 50 mg tablet TAKE 1 TABLET DAILY IN ADDITION TO 100MG TABLET active Not Available Not Available No t Available amoxicilli n 875 mg-potassi um clavulanat e 125 mg tablet TAKE 1 TABLET BY MOUTH TWICE A DAY FOR 10 DAYS active Not Available Not Available No t Available magnesium 250 mg (as magnesium oxide) tablet active Medicatio n ID: [id number] Br and Name: magnesium oxide Sen d Method: E-Prescri bed Subs Allowed: subs OK Specia l Instructi on: TAKE 1 TABLET BY MOUTH EVERY DAY Medic ationGene ricName: magnesium oxide Not Available Not Available Not Available aripiprazo le 5 mg tablet TAKE 1 TABLET BY MOUTH EVERY DAY active Not Available Not Available No t Available bupropion HCl XL 150 mg 24 hr tablet, extended release 2018 active Medicatio n ID: [id number] Du ration Value: 90 Brand Name: bupropion HCl Send Method: E-Prescri bed Subs Allowed: subs OK Specia l Instructi on: TAKE 1 TABLET BY MOUTH EVERY DAY IN THE MORNING M edication GenericNa me: bupropion HCl Not Available Not Available Not Available nitrofuran toin monohydrat e/macrocry stals 100 mg capsule TAKE 1 CAPSULE BY MOUTH TWICE A DAY FOR 5 DAYS active Not Available Not Available No t Available fenofibrat e nanocrysta llized 145 mg tablet TAKE 1 TABLET BY MOUTH EVERY DAY active Not Available Not Available No t Available FreeStyle Lite Strips TO TEST SUGARS ONCE A DAY PRIOR TO BREAKFAST active Not Available Not Available No t Available cholecalci ferol (vitamin D3) 50 mcg (2,000 unit) capsule TAKE 1 CAPSULE BY MOUTH EVERY DAY active Not Available Not Available No t Available Eliquis 2.5 mg tablet active Medicatio n ID: [id number] Du ration Value: 30 Brand Name: Eliquis S end Method: E-Prescri bed Subs Allowed: subs OK Medica tionGener icName: Eliquis Not Available Not Available Not Available Vitals None Recorded Social History None recorded. Functional Status None recorded. Mental Status None recorded. Family History Nothing Reported. Medical History No medical history recorded. Past Encounters Encounter ID Performer Location Encounter Start Date Encounter Closed Date Diagnosis/Indication Diagnosis SNOMED-CT Code Diagnosis ICD10 Code Diagnosis IMO Codes Diagnosis Note [id number] Maggy PELAYO [facility] - [address] [place] [address] 07/07/2024 15:02:11 07/07/2024 16:37:22 Sensorineural hearing loss of bilateral ears 054536111 H90.3 [id number] Maggy [place]ELAYO [place] - [place] [address] [facility],[place] [address] [place] [address] 10/08/2024 13:26:59 10/09/2024 07:24:41 Sensorineural hearing loss of bilateral ears 835108834 H90.3 Health Concerns Section Related Observation LastModified by Organization Detai ls LastModified Time None Recorded Concern Status LastModified by Organization Details LastModified Time None Recorded Advance Directives Directive None Recorded Payers Insurance Date Sequence Insurance Name Policy Number Policy Peralta Covered Member ID Peralta Member ID Guarantor Name 10/08/2024 1 *SELF PAY* Messi Frausto 10/08/2024 1 [facility]: MEDICARE PPO BLUE (MEDICARE REPLACEMENT PPO) [id number] Kurt Frausto [id number] Kurt Frausto Notes Date Note Type Note Provider Name and Address Organization Details Recorded Time 07/07/2024 text/html Hearing Aid Repa ir HPIReported by PatientVisit TypeFor visit type, patient reportsdrop off repair.Left Hearing AidFor reported condition, patient reportshearing device is functioning well.Right Hearing AidFor reported condition, patient reportsdead (clogged tubing). Maggy PELAYO [address] [facility],[place] [address], [place], [address], [facility] 07/07/2024 15:04:19 10/08/2024 text/html Patient returned to our office for the initial fitting of hearing devices as a longstanding user of amplification. They recently lost their right hearing aid. They continue to wear their Oticon Agil Pro BTE with slim tube on the left ear. Maggy PELAYO [address] [facility] [address], [place], [address], [facility] - [facility] 10/08/2024 14:05:08
--- OUTSIDE RECORDS SUMMARY | 2025-11-23 11:47 | XMS_ITS ---
Author Name [facility] Organization Unknown History of Medication Use Medication Directions Dispensed Refills Start Date End Date Stat lisinopriL (PRINIVIL,ZESTRIL) 10 mg tablet Take 1 tablet (10 mg total) by mouth 1 (one) time each day. 04/26/2025 active metoprolol tartrate (LOPRESSOR) 25 mg tablet Take 1 tablet (25 mg total) by mouth 2 (two) times a day. 04/26/2025 active warfarin (COUMADIN) 5 mg tablet TAKE 1/2 TAB -1 TAB DAILY DIRECTED BY [facility] 04/22/2025 active metFORMIN XR (GLUCOPHAGE-XR) 500 mg 24 hr tablet Take 1 tablet (500 mg total) by mouth 1 (one) time each day. Do not crush, chew, or split. 03/11/2025 active fenofibrate (TRICOR) 145 mg tablet TAKE 1 TABLET BY MOUTH EVERY DAY 01/12/2025 active cholecalciferol (VITAMIN D-3) 50 mcg (2,000 unit) capsule TAKE 1 CAPSULE BY MOUTH EVERY DAY 12/25/2024 active omeprazole (PriLOSEC) [address] capsule Take 1 capsule (20 mg total) by mouth 1 (one) time each day. Take in a.m. on empty stomach, wait 30 minutes and then eat to activate medication 12/23/2024 active atorvastatin (LIPITOR) 10 mg tablet Take 1 tablet (10 mg total) by mouth at bedtime. 12/10/2024 active albuterol HFA (PROAIR HFA ; PROVENTIL HFA ; VENTOLIN HFA) 90 mcg/actuation inhaler Inhale 2 Puffs into the lungs every 6 hours as needed for Cough, Wheezing or Shortness of Breath for up to 30 days. 04/09/2024 active clonazePAM (KlonoPIN) 0.5 mg tablet TAKE 1 TABLET BY MOUTH EVERY DAY NEEDED 04/09/2024 active magnesium oxide (MAG-OX) 400 mg (241.3 elemental magnesium) tablet TAKE 1 TABLET BY MOUTH EVERY DAY 04/01/2024 active sertraline (ZOLOFT) 50 mg tablet TAKE 1 TABLET DAILY IN ADDITION TO 100MG TABLET 02/07/2024 active amitriptyline (ELAVIL) 50 mg tablet Take 1 Tablet by mouth daily. 01/21/2024 active traZODone (DESYREL) 100 mg tablet TAKE 1 TABLET BY MOUTH NEEDED AT BEDTIME 01/21/2024 active FREESTYLE LANCETS MISC To test sugars once a day prior to breakfast 03/26/2023 active sertraline (ZOLOFT) 100 mg tablet Take 1 Tablet by mouth daily. active Problems Problem Status Onset Date Problem Type Date of Resoluti on Source Tobacco use disorder active 2006-10-07 ProblemAct [facility] Thyroid nodule active 2011-04-05 ProblemAct [facility] Obstructive sleep apnea active 2017-12-23 ProblemAct [facility] Type II diabetes mellitus with renal manifestations (CMS/HCC V24, CMS/HCC V28) active 2011-06-13 ProblemAct [facility] Hypertension active 2008-07-21 ProblemAct [facility] Neuropathy active 2015-06-14 ProblemAct [facility] Spinal stenosis of lumbar region without neurogenic claudication active 2024-04-24 ProblemAct [facility] Acute pyelonephritis active 2025-04-22 ProblemAct [facility] Hepatomegaly active 2010-05-02 ProblemAct [facility] Alcoholic liver disease (CMS/HCC V24) active 2012-06-04 ProblemAct [facility] Alcohol dependency (CMS/HCC V24, CMS/HCC V28) active 2008-07-21 ProblemAct [facility] Paroxysmal atrial fibrillation (CMS/HCC V24, CMS/HCC V28) active 2023-03-15 ProblemAct [facility] Leg pain, bilateral active 2023-06-13 ProblemAct [facility] Lipoma of buttock active 2016-08-16 ProblemAct [facility] Vitamin D deficiency active 2019-04-07 ProblemAct [facility] SOB (shortness of breath) active 2021-01-31 ProblemAct [facility] Hyperlipidemia active 2008-02-19 ProblemAct [facility] Erectile dysfunction active 2015-06-14 ProblemAct [facility] Herpes simplex virus (HSV) infection active 2006-10-07 ProblemAct [facility] SSBE (short-segment Baker's esophagus) active 2012-06-04 ProblemAct [facility] Panic active 2010-01-18 ProblemAct [facility] AN Persistent atrial fibrillation (CMS/HCC V24, CMS/HCC V28) active 2010-09-15 ProblemAct [facility] Atrial flutter (CMS/HCC V24, CMS/HCC V28) active 2022-05-10 ProblemAct [facility] Fatty liver active 2009-02-21 ProblemAct [facility] FABIANA Subclinical hypothyroidism active 2020-01-26 ProblemAct [facility] Colonic adenoma active 2012-06-[address] [facility] Cirrhosis of liver without ascites (CMS/HCC V24, CMS/HCC V28) active 2023-02-08 ProblemAct [facility] Obesity (BMI 30.0-34.9) active 2021-11-16 ProblemAct [facility] Pancreatic mass active 2010-09-29 [address] [facility] Depression active 2014-02-08 ProblemAct [facility] Pulmonary nodule active 2024-08-24 ProblemAct C [facility]_THSFR[facility] Immunizations Vaccine Date Source Lot Number Status Influenza trivalent, 0.5mL ( Fluzone High-dose) 65yo and older 09/13/2023 [facility] [id number] comple ale Pfizer (ages 12 & older) Biv alent, COVID-19 11/13/2022 [facility] [id number] completed Moderna SARS-CoV-2 COVID-19, mRNA, LNP-S, preservative free 06/15/2022 [facility] [id number] completed Pneumococcal conjugate 13 va lent (Prevnar 13, PCV13) 2mo and older 12/07/2021 [facility] [id number] complet ed Zoster recombinant (Shingrix ) 19yo and older 11/20/2021 [facility] [id number] completed Zoster recombinant (Shingrix ) 19yo and older 09/09/2021 [facility] [id number] completed Influenza, Unspecified 08/03/2021 [facility] co mpleted Moderna SARS-CoV-2 COVID-19, mRNA, LNP-S, preservative free 02/24/2021 [facility] [id number] completed Moderna SARS-CoV-2 COVID-19, mRNA, LNP-S, preservative free 01/27/2021 [facility] [id number] completed Influenza trivalent, with pr eservative (Fluzone; Afluria) 6mo and older 01/17/2021 [facility] completed Influenza, Unspecified 07/23/2019 [facility] co mpleted Influenza Quadravalent, MDCK , 0.5ml, preservative free (Flucelvax) 6mo and older 08/15/2018 [facility]_NACHO [id number] completed Influenza trivalent, with pr eservative (Fluzone; Afluria) 6mo and older 09/18/2017 [facility] completed Td Tetanus diptheria (Tdvax) 7yo and older 09/30/2016 [facility] MIN[facility] [id number] completed Influenza trivalent, with pr eservative (Fluzone; Afluria) 6mo and older 08/16/2016 [facility] [id number] completed Zoster Live 11/23/2015 [facility] [id number] completed Pneumococcal polysaccharide 23 valent (Pneumovax 23) 2yo and older 06/22/2014 [facility] [id number] com pleted Tdap Tetanus diptheria acell ular pertussis (Boostrix; Adacel) 7yo and older 01/14/2013 [facility] [id number] completed Influenza trivalent, with pr eservative (Fluzone; Afluria) 6mo and older 09/24/2012 [facility] [id number] completed Influenza trivalent, with pr eservative (Fluzone; Afluria) 6mo and older 08/16/2011 [facility] [id number] completed Influenza trivalent, with pr eservative (Fluzone; Afluria) 6mo and older 08/30/2010 [facility] [id number] completed Influenza trivalent, with pr eservative (Fluzone; Afluria) 6mo and older 09/09/2009 [facility] [id number] completed Td Tetanus diptheria (Tdvax) 7yo and older 08/13/2006 [facility]_T HSFRAN TD 153 completed Td Tetanus diptheria (Tdvax) 7yo and older 04/12/2004 [facility]_T HSFRAN completed Care Team Organization Name Specialty Phone Email Start Date End Da te [facility] 10/02/2022 4
--- OUTSIDE RECORDS SUMMARY | 2025-11-23 11:48 | XMS_ITS | Clinical Summary ---
Author Organization [address] [place] [address] [place] [phone] Phone Care Team Providers Care Generator Operator Name Role Phone Mariah Galaviz MD Primary Care Provider Allergies No known active allergies Medications FREESTYLE LANCETS MISC To test sugars once a day prior to breakfast 3 Active blood sugar diagnostic (FreeStyle Lite Strips) test strip To test sugars once a day prior to breakfast 3 Active sertraline (ZOLOFT) 100 mg tablet Take 1 Tablet by mouth daily. Active albuterol HFA (PROAIR HFA ; PROVENTIL HFA ; VENTOLIN HFA) 90 mcg/actuation inhaler Inhale 2 Puffs into the lungs every 6 hours as needed for Cough, Wheezing or Shortness of Breath for up to 30 days. 4 Active magnesium oxide (MAG-OX) 400 mg (241.3 elemental magnesium) tablet TAKE 1 TABLET BY MOUTH EVERY DAY 4 Active traZODone (DESYREL) 100 mg tablet TAKE 1 TABLET BY MOUTH NEEDED AT BEDTIME 4 Active sertraline (ZOLOFT) 50 mg tablet TAKE 1 TABLET DAILY IN ADDITION TO 100MG TABLET 4 Active amitriptyline (ELAVIL) 50 mg tablet Take 1 Tablet by mouth daily. 4 Active clonazePAM (KlonoPIN) 0.5 mg tablet TAKE 1 TABLET BY MOUTH EVERY DAY NEEDED 4 Active NON FORMULARY CPAP HISTORICAL (HISTORICAL CPAP) by Nasal route at bedtime. BHIR-pressure 6-16 Active omeprazole (PriLOSEC) [address] capsule Take 1 capsule (20 mg total) by mouth 1 (one) time each day. Take in a.m. on empty stomach, wait 30 minutes and then eat to activate medication 30 capsule 11 5 Active warfarin (COUMADIN) 5 mg tablet TAKE 1/2 TAB -1 TAB DAILY DIRECTED BY [facility] 90 tablet 3 5 Active metoprolol tartrate (LOPRESSOR) 25 mg tablet Take 1 tablet (25 mg total) by mouth 2 (two) times a day. 60 each 11 5 04/26/20 26 Active lisinopriL (PRINIVIL,ZESTR IL) 10 mg tablet TAKE 1 TABLET BY MOUTH TWICE A DAY 180 tablet 1 5 Active atorvastatin (LIPITOR) 10 mg tablet TAKE 1 TABLET BY MOUTH EVERYDAY AT BEDTIME 90 tablet 1 5 Active buPROPion XL (WELLBUTRIN XL) 150 mg 24 hr tablet Take 1 tablet (150 mg total) by mouth 1 (one) time each day. 9 Active cholecalciferol (VITAMIN D-3) 50 mcg (2,000 unit) capsule TAKE 1 CAPSULE BY MOUTH EVERY DAY 90 capsule 1 5 Active fenofibrate (TRICOR) 145 mg tablet TAKE 1 TABLET BY MOUTH EVERY DAY 90 tablet 1 5 Active latanoprost (XALATAN) 0.005 % ophthalmic solution Administer 1 drop into both eyes at bedtime. 5 Active metFORMIN XR (GLUCOPHAGE-XR) 500 mg 24 hr tablet TAKE 1 TABLET (500 MG TOTAL) BY MOUTH 1 (ONE) TIME EACH DAY. DO NOT CRUSH, CHEW, OR SPLIT. 90 tablet 5 Active dorzolamide-jose juan oloL (COSOPT) 22.3-6.8 mg/mL ophthalmic solution 5 Active Active Problems Problem Noted Date Diagnosed Date Acute pyelonephritis 04/22/2025 Pulmonary nodule 08/24/2024 Spinal stenosis of lumbar re gion without neurogenic claudication 04/24/2024 Overview (08/24/2024): Last Assessment & Plan: I reviewed the new MRI findings in detail with Mr. Frausto and believe he was symptomatic from the right L2-3 synovial cyst but that seems to have improved. His main symptom is of back pain from feeling compressed which happens with loss of disc height over time. We discussed stretching such as use of an inversion table if available and swimming for exercise. There is no surgery needed at this time. Leg pain, bilateral 06/13/2023 Paroxysmal atrial fibrillation 03/15/2023 Assessment & Plan (03/08/2025 5:27 AM EDT): Orders: ECG 12 lead Cirrhosis of liver without ascites 02/08/2023 Atrial flutter 05/10/2022 Obesity (BMI 30.0-34.9) 11/16/2021 SOB (shortness of breath) 01/31/2021 Overview (08/24/2024): Last Assessment & Plan: Feels like his dyspnea with exertion has worsened, has not had an Echo or stress test in a long time, therefore we will complete a new echo and also a nuclear pharmacological stress test. He does not feel he could do a treadmill test due to back fusion surgery in the past. He has some new ST/T wave abnormalities as well- we will rule out any ischemia Subclinical hypothyroidism 01/26/2020 Vitamin D deficiency 04/07/2019 Obstructive sleep apnea 12/23/2017 Overview (08/24/2024): Last Assessment & Plan: Patient is compliant with the use of CPAP. Patient meets DME requirements with more than 70% of the time for more than 4 hours. His ESS score is low We will do a prescription for new CPAP supplies. Reviewed Compliance requirements with patient/family: machine use for > 4 hours use per night for at least 70% of nights in a 30 day period; if not used enough, healthcare insurance may refuse to pay for the machine and supplies. - Reviewed negative health outcomes from untreated sleep apnea discussed to include heart attack, sudden cardiac , abnormal heart rhythms, stroke, seizures, hypertension, poor quality of life, cognitive issues and impaired metabolism contributing to glucose regulation. For DME company considerations - As annotated in the HPI - patient does report compliance and benefit from use - Please send the ResScan for our review within the next 1-2 weeks - Reviewed that based on the sleep apnea, continued use is medically necessary. Lipoma of buttock 08/16/2016 Erectile dysfunction 06/14/2015 Neuropathy 06/14/2015 Depression 02/08/2014 Alcoholic liver disease 06/04/2012 Colonic adenoma 06/04/2012 Overview (08/24/2024): Luz Marina; 05/07/12; Tubular; SSBE (short-segment Baker's esophagus) 012 Overview (08/24/2024): Luz Marina; 05/07/12, [facility]. Approx 4 cm (40 to 44 cm). 11/05/2019--- EGD, [facility]. 2 cm of Baker's esophagus, no dysplasia. Consider repeat upper GI endoscopy 10/2022-10/2023. Assessment & Plan (06/25/2025 3:03 PM EDT): He was scheduled for an EGD which she had to cancel however not rescheduled, referral placed to gastroenterology again for EGD for follow-up on Baker's esophagus. Orders: Ambulatory referral to Gastroenterology; Future CBC and differential; Future Assessment & Plan (01/14/2025 5:28 PM EST): Type II diabetes mellitus with renal manifestati ons 06/13/2011 Assessment & Plan (06/25/2025 3:03 PM EDT): Orders: Microalbumin creatinine urine ratio; Future Hemoglobin A1c; Future Thyroid nodule 04/05/2011 Overview (08/24/2024): FNA 04/04; Benign, Right lobe Pancreatic mass 09/29/2010 Overview (08/24/2024): 09/03 Persistent atrial fibrillation 09/15/2010 Overview (08/24/2024): Jesus; ablation 02/02 Last Assessment & Plan: In SR, rhythm is controlled on Flecainide, Rate is controlled on BB, anticoagulated on Eliquis, he tells me this is getting too expensive for him, gave him a patient cost evaluation form and he will call his insurance to check if Xarelto is an option cost gamboa. He will let us know ANNETTE his decision. He understands the risks and benefits of anticoagulation and wishes to continue Hepatomegaly 05/02/2010 Panic 01/18/2010 Fatty liver 02/21/2009 Alcohol dependency 07/21/2008 Hypertension 07/21/2008 Overview (08/24/2024): Last Assessment & Plan: Controlled Assessment & Plan (06/25/2025 3:03 PM EDT): Continue with metoprolol 25 mg twice a day, lisinopril 20 mg daily, Orders: Comprehensive metabolic panel; Future Hyperlipidemia 02/19/2008 Overview (08/24/2024): Last Assessment & Plan: Last lipid panel 12/15 total cholesterol 219, HDL 43, triglycerides 883, LDL was unable to be calculated. This was completed not fasting. Therefore we will update this fasting, continue statin. Assessment & Plan (06/25/2025 3:03 PM EDT): Continue with atorvastatin 10 mg and fenofibrate 145 mg daily. Orders: Lipid panel with reflex to direct LDL; Future Herpes simplex virus (HSV) infection 10/07/2006 Overview (08/24/2024): IMO update Tobacco use disorder 10/07/2006 Encounters Date Type Department Care Team Description 11/19/2025 Anticoagulation - Warfarin Visit [facility] [address] [phone] Faisal Bustamante MD Persistent atrial fibrillation (CMS/HCC V24, CMS/HCC V28) (Primary Dx) 11/15/2025 Anticoagulation - Warfarin Visit [facility] [address] [phone] Faisal Bustamante MD Persistent atrial fibrillation (CMS/HCC V24, CMS/HCC V28) (Primary Dx) 11/05/2025 Anticoagulation - Warfarin Visit [facility] [address] [phone] Faisal Bustamante MD Persistent atrial fibrillation (CMS/HCC V24, CMS/HCC V28) (Primary Dx) 10/29/2025 Anticoagulation - Warfarin Visit [facility] [place] [address] [address] Faisal Bustamante MD Persistent atrial fibrillation (CMS/HCC V24, CMS/HCC V28) (Primary Dx) 10/20/2025 Anticoagulation - Warfarin Visit [facility] [place] [address] [address] Faisal Bustamante MD Persistent atrial fibrillation (CMS/HCC V24, CMS/HCC V28) (Primary Dx) 10/15/2025 Results Follow-Up [address] [phone] Mariah Galaviz MD 10/14/2025 9:40 AM EST Lab Draw [address] Mixed hyperlipidemia; Subclinical hypothyroidism; Type 2 diabetes mellitus with diabetic microalbuminuria, without long-term current use of insulin (CMS/HCC V24, CMS/HCC V28); Primary hypertension; SSBE (short-segment Baker's esophagus); Glossitis 10/13/2025 10:00 AM EST Office Visit [address] [phone] Mariah Galaviz MD Subclinical hypothyroidism (Primary Dx); Depression, unspecified depression type; Primary hypertension; Mixed hyperlipidemia 10/13/2025 Anticoagulation - Warfarin Visit [facility] [place] [address] [address] Faisal Bustamante MD Persistent atrial fibrillation (CMS/HCC V24, CMS/HCC V28) (Primary Dx) 09/23/2025 Anticoagulation - Warfarin Visit [facility] [address] [place] [address] Faisal Bustamante MD Persistent atrial fibrillation (CMS/HCC V24, CMS/HCC V28) (Primary Dx) 09/09/2025 Anticoagulation - Warfarin Visit [facility] [address] [place] [address] Faisal Bustamante MD Persistent atrial fibrillation (CMS/HCC V24, CMS/HCC V28) (Primary Dx) 09/02/2025 Anticoagulation - Warfarin Visit [facility] [address] [place] [address] Faiasl Bustamante MD Persistent atrial fibrillation (CMS/HCC V24, CMS/HCC V28) (Primary Dx) 08/25/2025 10:40 AM EDT Office Visit [facility] [address] [place] [address] Jen Hurt PA Paroxysmal atrial fibrillation (CMS/HCC V24, CMS/HCC V28) (Primary Dx); Encounter for monitoring flecainide therapy; Dyspnea on exertion 08/25/2025 Telephone [facility] [address] [place] [address] Jen Hurt PA 08/24/2025 12:07 PM EDT Anesthesia Event [facility] [address] [place] [phone] Todd Sr MD 08/24/2025 10:50 AM EDT - 08/24/2025 11:59 PM EDT Hospital Encounter [facility] [address] [place] [phone] Arvin Clemente MD Mounsey, Sarah, CRNA Kriz, Petra, MD Baker's esophagus; Gastroesophageal reflux disease without esophagitis Discharge Disposition: Home or Self Care from Last 3 Months Immunizations Immunization Administration Dates Next Due Influenza Quadravalent, 0.5m l (Fluzone High-dose) 65yo and older 08/03/2021,01/17/2021 Influenza Quadravalent, MDCK , 0.5ml, preservative free (Flucelvax) 6mo and older 08/15/2018 Influenza Quadrivalent, 0.5m l, preservative free (Fluarix; FluLaval; Fluzone) ages 6mo and older (Afluria) 3yo and older 07/10/2019,09/18/2017 Influenza trivalent, 0.5mL ( Fluzone High-dose) 65yo and older 07/12/2025,08/05/2024,09/13/2023 Influenza trivalent, 0.5mL, preservative free (Fluarix; FluLaval; Fluzone) ages 6mo and older (Afluria) 3 years and older 08/05/2023 Influenza trivalent, with pr eservative (Fluzone; Afluria) 6mo and older 01/17/2021,09/18/2017,08/16/2016,09/24,08/16/2011,08/30/2010,09/09/2009 Influenza, Unspecified 08/03/2021,07/23/2019 Moderna (age 6mo & older) Bi valent, COVID-19, 0.5 mL or 0.25 mL dosage 11/13/2022 Moderna SARS-CoV-2 COVID-19, mRNA, LNP-S, preservative free 06/15/2022,02/24/2021,01/27/2021 Pfizer (ages 12 & older) Biv alent, COVID-19 11/13/2022 Pneumococcal conjugate 13 va lent (Prevnar 13, PCV13) 2mo and older 12/07/2021 Pneumococcal polysaccharide 23 valent (Pneumovax 23) 2yo and older 06/22/2014 RSV, bivalent, protein subun it RSVpreF, 0.5mL, Preservative Free (Arexvy) 50yo and older 08/23/2023 Td Tetanus diptheria (Tdvax) 7yo and older 09/30/2016,08/13/2006,04/12/2004,04/12 Td Tetanus diptheria, preser vative free (Tenivac) 7yo and older 09/30/2016 Td, Unspecified 04/12/2004 Tdap Tetanus diptheria acell ular pertussis (Boostrix; Adacel) 7yo and older 09/18/2024,01/14/2013 Zoster Live 11/23/2015 Zoster recombinant (Shingrix ) 19yo and older 11/20/2021,09/09/2021 Surgical History Surgery Date Site/Laterality Comments ABLATION OF DYSRHYTHMIC FOCUS AFIB SPINAL FUSION COLONOSCOPY ESOPHAGOGASTRODUODENOSCOPY Medical History Medical History Date Comments Atrial fibrillation ([facility] V24, [facility] V28) Atrial flutter ([facility] V24, [facility] V28) Sleep apnea Hyperlipidemia Hypertension SOB (shortness of breath) Diabetes mellitus type 2 in nonobese ([facility] V2 4, [facility] V28) Liver cirrhosis ([facility] V24, [facility] V28) Anxiety Depression GERD (gastroesophageal reflux disease) Chronic kidney disease Family History Medical History Relation Name Comments Kidney failure Father Relation Name Status Comments Father Social History Tobacco Use Types Packs/Day Years Used Date Smoking Tobacco: Former Cigarettes 0 Q uit: 01/23/2022 Passive Smoke Exposure: Never Smokeless Tobacco: Never Tobacco Cessation:Counseling Given: Not Answered Alcohol Use Standard Drinks/Week Comments Yes 3 (1 standard drink = 0.6 oz pur e alcohol) Housing Instability Answer Date Recorde d Are you worried that in the next 2 months you may not have stable housing? No 06/25/2025 Food Access & Nutrition Answer Date Rec orded Do you have access to a vari ety of food including fruits and vegetables? No 06/25/2025 Health Literacy Answer Date Recorded How often do you need to hav e someone help you when you read instructions, pamphlets, or other written material from your doctor or pharmacy? Never 06/25/2025 Caregiver: How often do you need to have someone help you when you read instructions, pamphlets, or other written material from your doctor or pharmacy? Not on file 06/25/2025 Financial Risk Answer Date Recorded How hard is it for you to pa y for the very basics like food, housing, medical care, and air conditioning / heating? Not very hard 06/25/2025 Transportation Answer Date Recorded Has the lack of transportati on kept you from meetings, work, or from getting things needed for daily living? No Has the lack of transportati on kept you from medical appointments or from getting medications? No 06/25/2025 Social Isolation Answer Date Recorded How often do you feel lonely or isolated from th ose around you? Rarely 04/22/2025 Food Risk Answer Date Recorded Within the past 12 months we worried whether our food would run out before we got money to buy more. Never true 06/25/2025 Within the past 12 months th e food we bought just didn't last and we didn't have money to get more. Never true 06/25/2025 Dependent Care Answer Date Recorded Do you need help finding or paying for care for your loved ones. For example, child neurologist or elderly care for an older adult? No 06/25/2025 Education Answer Date Recorded Do you think completing more education or training, like finishing a GED, going to college, or learning a trade, would be helpful for you? No 06/25/2025 Employment and Income Answer Date Recor ded During the last four weeks, have you been actively looking for work? No 06/25/2025 Living Situation Answer Date Recorded What is your living situation? Unrecognized valu e 06/25/2025 Interpersonal Safety Answer Date Record ed Physical Abuse Unrecognized value 08/24/2025 Verbal Abuse Unrecognized value 08/24/2025 Sex and Gender Information Value Date Recorded Sex Assigned at Male 08/16/2025 8:13 AM EDT Legal Sex Male 10:41 AM EST Gender Identity Male 08/16/2025 8:13 AM EDT Sexual Orientation Not on file Last Filed Vital Signs Vital Sign Reading Time Taken Comments Blood Pressure 114/80 10/13/2025 10:17 AM EST Pulse 76 10/13/2025 10:17 AM EST Temperature 36.6 C (97.8 F) 10/13/2025 10:17 AM EST Respiratory Rate 16 10/13/2025 10:17 AM EST Oxygen Saturation 98% 10/13/2025 10:17 AM EST Inhaled Oxygen Concentration - - Weight 83 kg (183 lb) 10/13/2025 10:17 AM EST Height 177.8 cm (5' 10 ) 10/13/2025 10:17 AM EST Body Mass Index 26.26 10/13/2025 10:17 AM EST Plan of Treatment Health Maintenance Due Date Last Done Comments Drug Screen 1955 Non-Opioid Controlled Substance Agreement 1955 Diabetes: Annual Foot Exam 1965 Diabetes: Annual Retina Eye Exam 1965 Hepatitis A Vaccines (1 of 2 - Risk 2-dose series) 1974 Hepatitis B Vaccines (1 of 3 - Risk 3-dose series) 2015 Abdominal Aortic Aneurysm (AAA) Screen 11/03/2022 COVID-19 Vaccine ( season) 2026 09/03/2025, 09/18/2024, 08/23/2023, Additional history exists Diabetes: Blood Sugar Control Test (HGBA1C) 04/13/2026 10/14/2025, 04/22/2025, 03/17/2024 Diabetes: Annual Urine Albumin-Creatinine Ratio (uACR) 06/25/2026 06/25/2025, 03/17/2024 Medicare Annual Wellness Visit 06/25/2026 06/25/2025 Social Influencers of Health Screening 06/25/2026 06/25/2025 Falls Risk Assessment 08/24/2026 08/24/2025, 025 Diabetes: Annual GFR (Glomerular Filtration Rate) 10/14/2026 10/14/2025, 06/25/2025, 05/07/2025, Additional history exists Hypertension/CHF/CAD Annual BMP Blood Test 10/14/2026 10/14/2025, 06/25/2025, 05/07/2025, Additional history exists Pneumococcal Vaccine: 50+ Years (3 of 3 - PCV20 or PCV21) 12/07/2026 12/07/2021, 06/22/2014 Colorectal Cancer Screening: Colonoscopy 01/17/2028 01/17/2023, 07/19/2017, 05/07/2012 Cholesterol Screening (Lipid Panel) 10/14/2030 10/14/2025, 03/31/2024, 02/07/2022 DTaP,Tdap,and Td Vaccines (9 - Td or Tdap) 09/18/2034 09/18/2024, 09/30/2016, 09/30/2016, Additional history exists Hepatitis C Screening Completed 09/20/2008 Zoster Vaccines Completed 11/20/2021, 08/25, 11/23/2015 RSV Immunization Adult Patients Completed 08/23/2023 Depression Screening Completed 06/25/2025 Influenza Vaccine Completed 07/12/2025, , 09/13/2023, Additional history exists HIB Vaccines Aged Out No longer eligi ble based on patient's age to complete this topic HPV Vaccines Aged Out No longer eligi ble based on patient's age to complete this topic IPV Vaccines Aged Out No longer eligi ble based on patient's age to complete this topic MMR Vaccines Aged Out No longer eligi ble based on patient's age to complete this topic Meningococcal ACWY Vaccine Aged Out N o longer eligible based on patient's age to complete this topic Meningococcal B Vaccine Aged Out No l onger eligible based on patient's age to complete this topic RSV Immunization Patients Under 20 months Aged Out No longer eligible based on patient's age to complete this topic Varicella Vaccines Aged Out No longer eligible based on patient's age to complete this topic Goals Goal Patient Goal Type Associated Problems Recent Progress Patient-Stated? Author Autogenera ale Goal Care Plan Autogenerated Problem No Iris Rosen Marti Procedures Procedure Name Priority Date/Time Associated Diagnosis Comments PROTHROMBIN TIME WITH INR Routine 11/19/2025 PROTHROMBIN TIME WITH INR Routine 11/13/2025 PROTHROMBIN TIME WITH INR Routine 11/05/2025 PROTHROMBIN TIME WITH INR Routine 10/28/2025 PROTHROMBIN TIME WITH INR Routine 10/20/2025 TRIIODOTHYRONINE FREE Routine 10/14/2025 9:41 AM EST Subclinical hypothyroidism FREE THYROXINE WITH REFLEX TO FREE TRIIODOTHYRONINE Routine 10/14/2025 9:41 AM EST Subclinical hypothyroidism CBC WITH AUTO DIFFERENTIAL Routine 10/14/2025 9:41 AM EST Mixed hyperlipidemia HEMOGLOBIN A1C Routine 10/14/2025 9:41 AM EST Type 2 diabetes mellitus with diabetic microalbuminuria, without long-term current use of insulin (CMS/HCC V24, CMS/HCC V28) Primary hypertension SSBE (short-segment Baker's esophagus) Glossitis Mixed hyperlipidemia LIPID PANEL WITH REFLEX TO DIRECT LDL Routine 10/14/2025 9:41 AM EST Type 2 diabetes mellitus with diabetic microalbuminuria, without long-term current use of insulin (CMS/HCC V24, CMS/HCC V28) Primary hypertension SSBE (short-segment Baker's esophagus) Glossitis Mixed hyperlipidemia THYROID STIMULATING HORMONE WITH REFLEX TO FREE T4 AND FREE T3 Routine 10/14/2025 9:41 AM EST Subclinical hypothyroidism CBC AND DIFFERENTIAL Routine 10/14/2025 9:41 AM EST Mixed hyperlipidemia COMPREHENSIVE METABOLIC PANEL Routine 10/14/2025 9:41 AM EST Mixed hyperlipidemia PROTHROMBIN TIME WITH INR Routine 10/13/2025 PROTHROMBIN TIME WITH INR Routine 09/23/2025 PROTHROMBIN TIME WITH INR Routine 09/09/2025 PROTHROMBIN TIME WITH INR Routine 09/02/2025 ECG 12-LEAD Routine 08/25/2025 10:49 AM EDT Paroxysmal atrial fibrillation (CMS/HCC V24, CMS/HCC V28) EGD Routine 08/24/2025 12:19 PM EDT Baker's esophagus Gastroesophageal reflux disease without esophagitis TISSUE EXAM Routine 08/24/2025 12:15 PM EDT Baker's esophagus Gastroesophageal reflux disease without esophagitis MICROALBUMIN CREATININE URINE RATIO Routine 06/25/2025 3:27 PM EDT Type 2 diabetes mellitus with diabetic microalbuminuria, without long-term current use of insulin (CMS/HCC V24, CMS/HCC V28) HM COLONOSCOPY Routine 01/17/2023 HEPATITIS C SCREENING Routine 09/20/2008 from Last 3 Months or Most Recently Relevant to Health Maintenance Results * Prothrombin time with INR (11/19/2025) Only the most recent of9 resultswithin the time period is included. INR 2.1 Prothrombin Time POC Blood Venous blood specimen / Unknown 11/19/2025 [facility] Provider MD LAB BLOOD ORDERABLES Crys l Result * (ABNORMAL) Thyroid stimulating hormone with reflex to free t4 and free t3 (10/14/2025 9:41 AM EST) TSH 4.41(H) 0.40 - 4.00 mcIU/mL 10/14/2025 1:21 PM EST [facility] Blood Venous blood specimen / Unknown Venipuncture / Unknown 10/14/2025 9:41 AM EST 10/14/2025 9:41 AM EST us Mariah Galaviz MD LAB BLOOD ORDERABLES Final Resul t Performing Organization Address City/[facility] Co de Phone Number [facility] [address] [place] [address], * Free thyroxine with reflex to free triiodothyronine (10/14/2025 9:41 AM EST) Free T4 0.92 0.70 - 1.80 ng/dL 10/14/2025 1:37 PM EST [facility] Blood Venous blood specimen / Unknown Venipuncture / Unknown 10/14/2025 9:41 AM EST 10/14/2025 9:41 AM EST us Mariah Galaviz MD LAB BLOOD ORDERABLES Final Resul t [facility] [address] [place] [address], [place] [phone] * (ABNORMAL) Lipid panel with reflex to direct LDL (10/14/2025 9:41 AM EST) [facility] Cholesterol 195 0 - 200 mg/dL 10/14/2025 1:29 PM EST [facility] Triglycerides 78 0 - 150 mg/dL 10/14/2025 1:29 PM [facility] HDL 76 >=40 mg/dL 10/14/2025 1:29 PM [facility] LDL Calculated 103(H) 0 - 100 mg/dL 10/14/2025 1:29 PM [facility] Comment:Estimated LDL Calcul ated using equation: Total cholesterol - HDL cholesterol - (Triglycerides/5) VLDL Cholesterol [place] 15.6 mg/dL 10/14/2025 1:29 PM [facility] Non HDL Chol. (LDL+VLDL) 119 <145 mg/dL 10/14/2025 1:29 PM [facility] [facility] Chol/HDL Ratio 2.6 0.0 - 4.4 10/14/2025 1:29 PM [facility] Blood Venous blood specimen / Unknown Venipuncture / Unknown 10/14/2025 9:41 AM EST 10/14/2025 9:41 AM EST us Mariah Galaviz MD LAB BLOOD ORDERABLES Final Resul t [facility] [address] [place] [address], [place] [phone] * (ABNORMAL) CBC auto differential (10/14/2025 9:41 AM EST) [facility] WBC 5.7 4.8 - 10.8 K/mcL LAB HEMETOLOGY METHOD 10/14/2025 12:08 PM EST [facility] RBC 4.40(L) 4.50 - 5.50 M/mcL LAB HEMETOLOGY METHOD 10/14/2025 12:08 PM [facility] Hemoglobin 12.8(L) 13.5 - 17.5 g/dL LAB HEMETOLOGY METHOD 10/14/2025 12:08 PM [facility] Hematocrit 38.4(L) 42.0 - 54.0 % LAB HEMETOLOGY METHOD 10/14/2025 12:08 PM [facility] MCV 88.1 79.0 - 98.0 FL LAB HEMETOLOGY METHOD 10/14/2025 12:08 PM [facility] MCH 29.4 27.0 - 32.0 pcg LAB HEMETOLOGY METHOD 10/14/2025 12:08 PM [facility] MCHC 33.3 32.0 - 37.0 g/dL LAB HEMETOLOGY METHOD 10/14/2025 12:08 PM [facility] RDW 15.6(H) 11.0 - 15.0 % LAB HEMETOLOGY METHOD 10/14/2025 12:08 PM [facility] Platelets 242 130 - 400 K/mcL LAB HEMETOLOGY METHOD 10/14/2025 12:08 PM [facility] MPV 9.2 7.0 - 11.0 FL LAB HEMETOLOGY METHOD 10/14/2025 12:08 PM [facility] NRBC 0.0 <1.0 % LAB HEMETOLOGY METHOD 10/14/2025 12:08 PM [facility] NRBC Absolute 0.00 <0.10 K/mcL LAB HEMETOLOGY METHOD 10/14/2025 12:08 PM [facility] Neutrophils Relative 52.8 % LAB HEMETOLOGY METHOD 10/14/2025 12:08 PM [facility] Lymphocytes Relative 28.8 % LAB HEMETOLOGY METHOD 10/14/2025 12:08 PM [facility] Monocytes Relative 11.5 % LAB HEMETOLOGY METHOD 10/14/2025 12:08 PM [facility] Eosinophils Relative 5.9 % LAB HEMETOLOGY METHOD 10/14/2025 12:08 PM [facility] Basophils Relative 0.7 % LAB HEMETOLOGY METHOD 10/14/2025 12:08 PM [facility] Immature Granulocytes Relative 0.3 % LAB HEMETOLOGY METHOD 10/14/2025 12:08 PM [facility] Neutrophils Absolute 3.01 1.50 - 7.00 K/mcL LAB HEMETOLOGY METHOD 10/14/2025 12:08 PM [facility] Lymphocytes Absolute 1.65 1.00 - 5.00 K/mcL LAB HEMETOLOGY METHOD 10/14/2025 12:08 PM [facility] Monocytes Absolute 0.66 0.20 - 1.00 K/mcL LAB HEMETOLOGY METHOD 10/14/2025 12:08 PM [facility] Eosinophils Absolute 0.34 0.00 - 0.50 K/mcL LAB HEMETOLOGY METHOD 10/14/2025 12:08 PM [facility] Basophils Absolute 0.04 0.00 - 0.20 K/mcL LAB HEMETOLOGY METHOD 10/14/2025 12:08 PM [facility] Immature Granulocytes Absolute 0.02 0.00 - 0.03 K/mcL LAB HEMETOLOGY METHOD 10/14/2025 12:08 PM [facility] Blood Venous blood specimen / Unknown Venipuncture / Unknown 10/14/2025 9:41 AM EST 10/14/2025 9:41 AM EST us Mariah Galaviz MD LAB BLOOD ORDERABLES Final Resul t [facility] [address] [place] [address], [place] [phone] * Triiodothyronine free (10/14/2025 9:41 AM EST) [facility] T3, Free 310 230 - 420 pcg/dL 10/14/2025 1:55 PM EST [facility] Blood Venous blood specimen / Unknown Venipuncture / Unknown 10/14/2025 9:41 AM EST 10/14/2025 9:41 AM EST us Mariah Galaviz MD LAB BLOOD ORDERABLES Final Resul t Performing Organization Address [facility]/ZIP Co de Phone Number [facility] [address] [place] [address], [place] [phone] * (ABNORMAL) Hemoglobin A1c (10/14/2025 9:41 AM EST) [facility] Hemoglobin A1C 7.3(H) <6.5 % LAB CHEMISTRY METHOD 10/14/2025 1:33 PM EST [facility] Mean Bld Glu Estim. 163 mg/dL LAB CHEMISTRY METHOD 10/14/2025 1:33 PM EST [facility] Blood Venous blood specimen / Unknown Venipuncture / Unknown 10/14/2025 9:41 AM EST 10/14/2025 9:41 AM EST us Mariah Galaviz MD LAB BLOOD ORDERABLES Final Resul t [facility] [address] [place] [address], [place] [phone] * (ABNORMAL) Comprehensive metabolic panel (10/14/2025 9:41 AM EST) [facility] Sodium 136 133 - 145 mmol/L 10/14/2025 1:29 PM EST [facility] Potassium 4.6 3.5 - 5.5 mmol/L 10/14/2025 1:29 PM [facility] Chloride 100 96 - 110 mmol/L 10/14/2025 1:29 PM [facility] CO2 27 21 - 32 mmol/L 10/14/2025 1:29 PM [facility] Anion Gap 9 3 - 11 10/14/2025 1:29 PM [facility] Glucose 128(H) 70 - 100 mg/dL 10/14/2025 1:29 PM [facility] BUN 19 5 - 25 mg/dL 10/14/2025 1:29 PM [facility] Creatinine 1.07 0.70 - 1.30 mg/dL 10/14/2025 1:29 PM [facility] eGFR 75 >=60 mL/min/1. 73m2 10/14/2025 1:29 PM [facility] Comment:Calculation based on the Chronic Kidney Disease Epidemiology Collaboration (CKD-EPI) equation refit without adjustment for race. BUN/Creatinine Ratio 17.8 10/14/2025 1:29 PM [facility] Calcium 8.5 8.5 - 10.5 mg/dL 10/14/2025 1:29 PM [facility] AST (SGOT) 27 10 - 42 unit/L 10/14/2025 1:29 PM [facility] ALT (SGPT) 17 10 - 60 unit/L 10/14/2025 1:29 PM [facility] Alkaline Phosphatase 49 42 - 121 unit/L 10/14/2025 1:29 PM [facility] Total Protein 7.8 6.0 - 8.0 g/dL 10/14/2025 1:29 PM [facility] Albumin 4.1 3.2 - 5.0 g/dL 10/14/2025 1:29 PM EST [facility] Total Bilirubin 0.6 0.0 - 1.4 mg/dL 10/14/2025 1:29 PM EST [facility] Blood Venous blood specimen / Unknown Venipuncture / Unknown 10/14/2025 9:41 AM EST 10/14/2025 9:41 AM EST Mariah Galaviz MD LAB BLOOD ORDERABLES Final Resul t [facility] [address] [place] [address], [place] [phone] * ECG 12 lead (08/25/2025 10:49 AM EDT) Ventricular Rate ECG 68 BPM GEM[facility] Atrial Rate 68 BPM GEMUSE P-R Interval 198 ms GEMUSE QRS Duration 96 ms GEMUSE Q-T Interval 402 ms GEMUSE QTc 427 ms GEMUSE P Wave [place] 78 degrees GEMUSE R [place] 3 degrees GEMUSE T [place] 26 degrees GEMUSE ECG Interpretation Normal sinus rhythm Nonspecific ST abnormality When compared with ECG of 23-APR-2025 03:31, Premature ventricular complexes are no longer Present Premature atrial complexes are no longer Present Confirmed by KEVIN RODRIGUEZ ([id number]) on 09/09/2025 9:23:31 PM GEM[facility] 08/25/2025 10:4 0 AM EDT 09/09/2025 9:23 PM EDT Jen MILLER ECG ORDERABLES Edited Result - Final GEMUSE * EGD Anesthesia - MAC; [facility] ENDOSCOPY (08/24/2025 12:19 PM EDT) Anatomical Region Laterality Modality Other 08/24/2025 12:1 0 PM EDT Impressions 08/24/2025 12:21 PM EDT - 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 Biopsied. Recommendation: - Await pathology results. - Observe patient's clinical course. - Repeat upper endoscopy in 5 years for surveillance. Narrative 08/24/2025 12:21 PM EDT [facility] Patient Name: Ventura Frausto Procedure Date: 08/24/2025 12:10 PM Date of : 1955 Age: 69 Gender: Male Note Status: Finalized Attending MD: Arvin Clemente MD, Procedure Date No Time: 08/24/2025 Procedure: Upper GI endoscopy Indications: Follow-up of Baker's esophagus Providers: Arvin Clemente MD Referring MD: Arvin Clemente MD Medicines: Propofol per Anesthesia Complications: No immediate complications. Estimated Blood Loss: Estimated blood loss was minimal. Procedure: Pre-Anesthesia Assessment: - ASA Grade Assessment: III - A patient with severe systemic disease. After obtaining informed consent, the endoscope was passed under direct vision. Throughout the procedure, the patient's blood pressure, pulse, and oxygen saturations were monitored continuously.The Endoscope was introduced through the mouth, and advanced to the second part of duodenum. The upper GI endoscopy was accomplished without difficulty. The patient tolerated the procedure well. Findings: There were esophageal mucosal changes secondary to established short-segment Baker's disease present at the gastroesophageal junction. The maximum longitudinal extent of these mucosal changes was 2 cm in length. Biopsies were taken with a cold forceps for histology. Estimated blood loss was minimal. Procedure Code(s): --- Professional --- 88375, Esophagogastroduodenoscopy, flexible, transoral; with biopsy, single or multiple Diagnosis Code(s): --- Professional --- K22.70, Baker's esophagus without dysplasia CPT copyright 2020 [employer]. All rights reserved. The codes documented in this report are preliminary and upon community placement worker review may be revised to meet current compliance requirements. Arvin Clemente MD 08/24/2025 12:20:52 PM This report has been signed electronically.Arvin Clemente MD Number of Addenda: 0 Note Initiated On: 08/24/2025 12:10 PM Scope In: Scope Out: Endoscopy Department at [facility] - [address] [place] [phone] Procedure Note Arvin Clemente MD - 08/24/2025 [facility] Patient Name: Ventura Frasuto Procedure Date: 08/24/2025 12:10 PM Date of : 1955 Age: 69 Gender: Male Note Status: Finalized Attending MD: Arvin Clemente MD, Procedure Date No Time: 08/24/2025 Procedure: Upper GI endoscopy Indications: Follow-up of Baker's esophagus Providers: Arvin Clemente MD Referring MD: Arvin Clemente MD Medicines: Propofol per Anesthesia Complications: No immediate complications. Estimated Blood Loss: Estimated blood loss was minimal. Procedure: Pre-Anesthesia Assessment: - ASA Grade Assessment: III - A patient with severe systemic disease. After obtaining informed consent, the endoscope was passed under direct vision. Throughout theprocedure, the patient's blood pressure, pulse, and oxygen saturations were monitored continuously.TheEndoscope was introduced through the mouth, and advanced tothe second part of duodenum. The upper GI endoscopy was accomplished without difficulty. The patienttolerated the procedure well. Findings: There were esophageal mucosal changes secondary to established short-segment Baker's disease presentat the gastroesophageal junction. The maximum longitudinal extent of these mucosal changes was 2cm in length. Biopsies were taken with a cold forcepsfor histology. Estimated blood loss was minimal. Procedure Code(s): --- Professional --- 62465, Esophagogastroduodenoscopy, flexible, transoral; with biopsy, single or multiple Diagnosis Code(s): --- Professional --- K22.70, Baker's esophagus without dysplasia CPT copyright 2020 [employer]. All rights reserved. The codes documented in this report are preliminary and upon community placement worker reviewmay be revised to meet current compliance requirements. 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 Biopsied. Recommendation: - Await pathology results. - Observe patient's clinical course. - Repeat upper endoscopy in 5 years forsurveillance. us Arvin Clemente MD GI~PROCEDURE ORDERABLES Final Re sult * Tissue exam (08/24/2025 12:15 PM EDT) Final Diagnosis A. Esophagus, biopsies: - Baker's mucosa. - Negative for dysplasia. 08/25/2025 9:40 AM EDT [facility] at 0940 EDT Gross Description A. Esophagus, biopsies: Labeled esophagus biopsy . Received in formalin are three irregular dang mucosal tissue fragments, each measuring approximately 0.3 cm in greatest dimension, which are wrapped in paper and submitted in toto in one cassette, three pieces, multiple levels on one slide. LYNNETTE 08/25/2025 9:40 AM EDT [facility] Disclaimer Unless otherwise specified, all tissue is 10% NB formalin fixed and paraffin embedded. 08/25/2025 9:40 AM EDT [facility] Tissue Esophageal structure / Unknown 08/24/2025 12:15 PM EDT 08/24/2025 2:27 PM EDT us Arvin Clemente MD LAB PATHOLOGY ORDERABLES Final R esult [facility] [address] [place] [address], * Microalbumin creatinine urine ratio (06/25/2025 3:27 PM EDT) Creatinine, Urine 70.0 mg/dL LAB CHEMISTRY METHOD 06/25/2025 7:26 PM EDT [facility] Microalb, Ur 11.3 0.0 - 29.0 mg/L LAB CHEMISTRY METHOD 06/25/2025 7:26 PM EDT [facility] Microalb/Creat Ratio 16 <30 mg/g creat LAB CHEMISTRY METHOD 06/25/2025 7:26 PM EDT [facility] Urine Urine specimen obtained by clean catch procedure / Unknown Non-blood Collection / Unknown 06/25/2025 3:27 PM EDT 06/25/2025 3:27 PM EDT Mariah Galaviz MD LAB URINE ORDERABLES Final Resul t [facility] [address] [place] [address], [place] [phone] * Colonoscopy (01/17/2023) Colonoscopy No Interpretation , Abstracted Anatomical Region Laterality Modality Other Ethel Hinds MD HEALTH MAINTENANCE Final Result * Hepatitis C Screening (09/20/2008) Pathologist [facility] Hepatitis C Screening Abstracted Ethel Hinds MD HEALTH MAINTENANCE Final Result from Last 3 Months or Most Recently Relevant to Health Maintenance Additional Health Concerns Active Problems Noted Date Diagnosed Date Autogenerated Problem 08/22/2025 Insurance [employer]UE [employer] - [place] MEDICARE ADVANTAGE Advance Directives * Full Code - Default (Latest Code Status on File) Date Activated Date Inactivated Comments 04/22/2025 4:32 AM 04/27/2025 2:24 PM This is order is used when code status has not been discussed with the patient, or code status is otherwise unknown/unconfirmed To update the patient's code status, place a code status order. Do not modify or discontinue any currently active code status orders. Care Teams Generator Operator Relationship Specialty Start Date End Date Mariah Galaviz MD [address] [place] [phone] PCP - General Internal Medicine 09/18/24
--- OUTSIDE RECORDS SUMMARY | 2025-11-23 11:48 | XMS_ITS | Encounter Summary ---
Author Organization [facility] Address [address] [place] [address] Care Team Providers Care Soil Engineer Name Role Phone Mariah Galaviz MD Primary Care Provider [phone] Encounter Details Date Type Department Care Team (Latest Contact Info) Description 11/19/2025 Anticoagulation - Warfarin Visit [facility] [address] [place] [phone] Faisal Bustamante MD [address] [place] [address] [facility] [address] [place] [phone] Persistent atrial fibrillation (CMS/HCC V24, CMS/HCC V28) (Primary Dx) Social History Tobacco Use Types Packs/Day Years Used Date Smoking Tobacco: Former Cigarettes 0 Q uit: 01/23/2022 Passive Smoke Exposure: Never Smokeless Tobacco: Never Alcohol Use Standard Drinks/Week Comments Yes 3 [...] care for your loved ones. For example, director child development center or elderly care for an older adult? [...] as of this encounter Progress Notes * Jeremi Jean Baptiste MA - 11/19/2025 1:18 PM EST Patient aware of instructions documented in this encounter Plan of Treatment Not on file documented as of this encounter Goals Goal Patient Goal Type Associated Problems Recent Progress Patient-Stated? Author Autogenera ale Goal Care Plan Autogenerated Problem No Iris Rosen documented as of this encounter Procedures Procedure Name Priority Date/Time Associated Diagnosis Comments PROTHROMBIN TIME WITH INR Routine 11/19/2025 documented in this encounter Results * Prothrombin time with INR (11/19/2025) INR 2.1 Prothrombin Time POC Blood Venous blood specimen / Unknown 11/19/2025 us Historical Provider LAB BLOOD ORDERABLES Crys l Result documented in this encounter Visit Diagnoses Diagnosis Persistent atrial fibrillation (CMS/HCC V24, CMS/HCC V28)- Primary Atrial fibrillation documented in this encounter Additional Health Concerns Active Problems Noted Date Diagnosed Date Autogenerated Problem 08/22/2025 Assessment Noted Time PHQ-9 Depression Total Score: 6 06/25/20 2:20 PM EDT A fall risk assessment has been complete d for the patient 06/25/2025 2:19 PM EDT documented as of this encounter Care Teams Soil Engineer Relationship Specialty Start Date End Date Mariah Galaviz MD [address] [place] [phone] PCP - General Internal Medicine 09/18/24 documented as of this encounter
--- OUTSIDE RECORDS SUMMARY | 2025-11-23 11:48 | XMS_ITS | Encounter Summary ---
Author Organization [facility] Address [address] [place] [address] Care Team Providers Care Tray Server Name Role Phone Mariah Galaviz MD Primary Care Provider [phone] Encounter Details Date Type Department Care Team (Late st Contact Info) Description 10/15/2025 Results Follow-Up Adult Medicine [address] [phone] Mariah Galaviz MD [address] [place] [address] Social History Tobacco Use Types Packs/Day Years [...] for your loved ones. For example, child care assistant or elderly care for an older adult? [...] on file documented as of this encounter Plan of Treatment Not on file documented as of this encounter Goals Goal Patient Goal Type Associated Problems Recent Progress Patient-Stated? Author Kikigenera aguilera Goal Care Plan Autogenerated Problem No Iris Rosen documented as of this encounter Visit Diagnoses Not on filedocumented in this encounter Additional Health Concerns Active Problems Noted Date Diagnosed Date Autogenerated Problem 08/22/2025 Assessment Noted Time PHQ-9 Depression Total Score: 6 06/25/20 25 2:20 PM EDT A fall risk assessment has been complete d for the patient 06/25/2025 2:19 PM EDT documented as of this encounter Care Teams Tray Server Relationship Specialty Start Date End Date Mariah Galaviz MD [address] [place] [phone] PCP - General Internal Medicine 09/18/24 documented as of this encounter
--- OUTSIDE RECORDS SUMMARY | 2025-11-23 11:48 | XMS_ITS | Clinical Summary ---
Author Organization [facility] Prior to 04/24/[address] [place] [address] Care Team Providers Care Materials Coordinator Name Role Phone Kaleb Mensah MD Primary Care Provider [phone] Medications Medication Sig Dispensed Refills Start Date End Date Status Magnesium Oxide 250 MG TABS Take by mouth daily. 0 Active meclizine (ANTIVERT) 25 MG tablet Take 25 mg by mouth 3 (three) times a day as needed. 0 Active bisacodyl (DULCOLAX) 5 MG EC tablet Take 5 mg by mouth daily as needed for constipation. 0 Active omeprazole (PriLOSEC) 20 MG capsule Take 20 mg by mouth daily. 0 Active traZODone (DESYREL) 100 MG tablet Take 100 mg by mouth every night at bedtime. 0 Active lisinopril (PRINIVIL,ZESTRIL) tablet 10 mg Take 10 mg by mouth daily. 0 Active sulindac (CLINORIL) 150 MG tablet Take 150 mg by mouth 2 (two) times a day. 0 Active pravastatin (PRAVACHOL) tablet 40 mg Take 40 mg by mouth daily. 0 Active metoprolol tartrate (LOPRESSOR) 100 MG tablet Take 100 mg by mouth 2 (two) times a day. 0 Active apixaban (ELIQUIS) 5 MG TABS tablet Take 5 mg by mouth every 12 (twelve) hours. 0 Active methocarbamol (ROBAXIN) 750 MG tablet Take 750 mg by mouth 4 (four) times a day. 0 Active Diclofenac Sodium 1 % GEL Apply topically. 0 Active amitriptyline (ELAVIL) tablet 50 mg Take 50 mg by mouth every night at bedtime. 0 Active flecainide (TAMBOCOR) 100 MG tablet Take 100 mg by mouth 2 (two) times a day. 0 Active clonazePAM (KlonoPIN) 0.5 MG tablet Take 0.5 mg by mouth 2 (two) times a day as needed for anxiety. 0 Active ketoconazole (NIZORAL) 2 % cream Apply topically daily. 0 Active hydrocortisone 2.5 % cream Apply topically 2 (two) times a day. 0 Active Respiratory Therapy Supplies (CARETOUCH CPAP & BIPAP HOSE) MISC by Does not apply route. 0 Active Multiple Vitamin (MULTIVITAMIN+ PO) Take by mouth. 0 Ac tive tamsulosin (FLOMAX) 0.4 MG CAPS Take 0.4 mg by mouth daily. 0 Active sertraline (ZOLOFT) 50 MG tablet Take 50 mg by mouth daily. 0 Active folic acid (CVS Folic Acid) 800 MCG tablet Take 400 mcg by mouth daily. 0 Active calcium carbonate (OS-RADHA) 1250 (500 Ca) MG tablet Take 1 tablet by mouth daily. 0 Active B Complex Vitamins (B COMPLEX PO) Take by mouth. 0 Active Ascorbic Acid (VITAMIN C) 1000 MG tablet Take 1,000 mg by mouth daily. 0 Active Active Problems Problem Noted Date Diagnosed Date Pancreatic cyst 02/14/2021 Social History Tobacco Use Types Packs/Day Years Used Date Smoking Tobacco: Never Assessed Sex and Gender Information Value Date Recorded Sex Assigned at Not on file Gender Identity Not on file Sexual Orientation Not on file Job Start Date Occupation Industry Not on file Not on file Not on file Last Filed Vital Signs Vital Sign Reading Time Taken Comments Blood Pressure 137/78 02/13/2021 1:04 PM EDT Pulse 67 02/13/2021 1:04 PM EDT Temperature 36.3 C (97.4 F) 02/13/2021 1:04 PM EDT Respiratory Rate - - Oxygen Saturation - - Inhaled Oxygen Concentration - - Weight 88.2 kg (194 lb 6.4 oz) 02/13/2021 1:04 P M EDT Height 177.8 cm (5' 10 ) 02/13/2021 1:04 PM EDT Body Mass Index 27.89 02/13/2021 1:04 PM EDT Plan of Treatment Health Maintenance Due Date Last Done Comments Hepatitis C Screening 1955 COVID-19 Vaccine (#1) 05/19/1956 Depression Screening 1967 Preventative Health Evaluation 1973 DTap / Tdap / Td (1 - Tdap) 1974 Colon Cancer Screening (Colonoscopy) 2000 Shingrix-Zoster Vaccine (1 of 2) 2005 Fall Risk Assessment 2020 Pneumococcal Vaccine (1 of 1 - PCV) 2020 Influenza Vaccine (#1) 2025 RSV Adult > 60+ Yrs or Pregn ant (1 - 1-dose 75+ series) 2030 Hepatitis B Vaccines Aged Out No long er eligible based on patient's age to complete this topic RSV Ped < 20 months Aged Out No longe r eligible based on patient's age to complete this topic Care Teams Materials Coordinator Relationship Specialty Start Date End Date Kaleb Mensah MD PCP - General Internal Medicine 06/16/19
== END 2025-11-23 09:47 | disposition home or self-care (01) ==
LOC: HO.HSM 09:18
PROVIDERS: PCP Internal Medicine; Visit Provider Registered Nurse
DX: G30.9 Alzheimer's disease, unspecified (principal); F02.80 Dementia in other diseases classified elsewhere, unspecified severity, without behavioral disturbance, psychotic disturbance, mood disturbance, and anxiety
CPT/HCPCS: 99214

== ENCOUNTER → 2025-11-23 09:18 | Outpatient (BNVA) | payer MEDICARE, SELFPAY | PROVIDERS: PCP Internal Medicine; Visit Provider Registered Nurse | DX: G30.9 Alzheimer's disease, unspecified (principal); F02.80 Dementia in other diseases classified elsewhere, unspecified severity, without behavioral disturbance, psychotic disturbance, mood disturbance, and anxiety | CPT/HCPCS: 99212 ==